=== PATIENT | male | born 1960 | race Hispanic/Latino ===

== ENCOUNTER 2016-12-22 17:00 | Inpatient (IN) | payer MEDICAID, OTHER ==
[2016-12-22 17:01] VITALS: BMI 30.1
--- NOTE | 2016-12-22 20:19 | C.PDOC ---
History Of Present Illness 56 yr old male presents to the ER for alcohol detox. Patient is a pre-screened. Patient reports last drink was today at 12pm. Patient reports he feels tremulous and nauseous. Patient denies chest pain, SOB, abdominal pain, weakness or numbness. 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 Constitutional: Positive for: Other ((+) tremulous) Cardiovascular: Negative for: Chest Pain Gastrointestinal: Positive for: Nausea. Negative for: Abdominal Pain Neurological: Negative for: Weakness, Numbness Physical Exam - Physical Exam Appears: Non-toxic, No Acute Distress Skin: Warm, Dry, No Pale, No Rash Head: Atraumatic, Normacephalic Eye(s): bilateral: Normal Inspection, PERRL, EOMI Oral Mucosa: Moist Neck: Normal, Normal ROM, Supple Chest: Symmetrical, No Tenderness Cardiovascular: Rhythm Regular, No Friction Rub, No Murmur Respiratory: Normal Breath Sounds, No Rales, No Rhonchi, No Stridor, No Wheezing Gastrointestinal/Abdominal: Bowel Sounds, Soft, No Tenderness, No Distention, No Guarding, No Rebound Back: Normal Inspection, No CVA Tenderness, No Vertebral Tenderness, No Paraspinal Tenderness Extremity: Normal ROM, No Swelling Neurological/Psych: Oriented x3, Normal Speech, Normal Motor Gait: Steady ED Course And Treatment - Laboratory Results Result Diagrams: 12/22/16 20:59 12/22/16 20:59 O2 Sat by Pulse Oximetry: 97 (on RA) Pulse Ox Interpretation: Normal Medical Decision Making Medical Decision Making: PLAN: * Alcohol Serum * Drug Screen * CBC * Urinalysis * Librium PO * Zofran PO NOTE: Patient had 1 episode of vomiting in the ED and was treated with Zofran OTD for the vomiting and Librium for alcohol withdrawals. Vomiting has no bleeding and denies GI bleeding. Patient reports that he gets vomiting if he does not drink. The case was discussed with Dr. Nuñez who agrees patient is medically cleared for detox and should get medicine consult for thrombocytopenia. No need for treatment at this time as there is no bleeding and petechiae. On re-exam, the patient reports improvement of symptoms. Lungs remain CTA, heart is RRR, abdomen is soft, non-tender and tolerating PO well. Ambulatory in the ED with steady gait. Disposition - Disposition Disposition: HOSPITALIZED Disposition Time: 21:50 Condition: STABLE - POA Present On Arrival: None - Clinical Impression Clinical Impression: Alcohol dependence - PA / HARVESTING MANAGER / Resident Statement MD/DO has reviewed & agrees with the documentation as recorded. - Scribe Statement The provider has reviewed the documentation as recorded by the Scribe Georgiana Hutchinson All medical record entries made by the Janibpetrona were at my direction and personally dictated by me. I have reviewed the chart and agree that the record accurately reflects my personal performance of the history, physical exam, medical decision making, and the department course for this patient. I have also personally directed, reviewed, and agree with the discharge instructions and disposition.
[2016-12-22 21:06] LABS: BASO % 0.8 % (0.0-2.0); EOS % 0.4 % (0.0-4.0); HEMATOCRIT 39.7 % (35.0-51.0); LYMPH # 0.7 K/uL (1.0-4.3); LYMPH % 25.2 % (20.0-40.0); MEAN CELL VOLUME 104.5 fL (80.0-94.0); MEAN CORPUSCULAR HEMOGLOBIN 35.5 pg (27.0-31.0); MEAN CORPUSCULAR HGB CONC 33.9 g/dL (33.0-37.0); MEAN PLATELET VOLUME 9.2 fL (7.2-11.7); MONO # 0.1 K/uL (0.0-0.8); MONO % 5.1 % (0.0-10.0); NRBC % 0.1 % (0.0-2.0); WHITE BLOOD COUNT 2.6 K/uL (4.8-10.8)
[2016-12-22 21:14] LABS: RBC URINE 3 /hpf (0-3); URINE BACTERIA RARE (<OCC); URINE BILIRUBIN NEGATIVE (NEGATIVE); URINE BLOOD NEGATIVE (NEGATIVE); URINE COLOR Amber (YELLOW); URINE GLUCOSE (UA) NORMAL (Normal); URINE KETONE NEGATIVE (NEGATIVE); URINE LEUKOCYTE ESTERASE NEG Leu/uL (Negative); URINE PROTEIN 2+ mg/dL (NEGATIVE); WBC URINE 1 /hpf (0-5)
[2016-12-22 21:34] LABS: CHLORIDE 102 mmol/L (98-107); SODIUM 141 mmol/L (132-148)
[2016-12-22 21:35] LABS: POTASSIUM 3.9 mmol/L (3.6-5.2)
[2016-12-22 21:37] LABS: ALKALINE PHOSPHATASE 80 U/L (38-126); AST/SGOT 298 U/L (17-59); BILIRUBIN,TOTAL 4.6 mg/dL (0.2-1.3); BLOOD UREA NITROGEN 11 mg/dL (9-20); CARBON DIOXIDE 27 mmol/L (22-30); GFR AFRICAN-AMERICAN > 60; GLUCOSE,RANDOM 122 mg/dL (75-110); TOTAL PROTEIN 6.3 g/dL (6.3-8.3)
[2016-12-22 21:38] LABS: ALCOHOL SERUM < 10 mg/dl (0-10); ALT/SGPT 215 U/L (21-72)
[2016-12-23 08:29] LABS: BASO % 0.6 % (0.0-2.0); EOS # 0.1 K/uL (0.0-0.7); LYMPH # 1.3 K/uL (1.0-4.3); MONO # 0.2 K/uL (0.0-0.8); WHITE BLOOD COUNT 2.8 K/uL (4.8-10.8)
[2016-12-23 08:34] LABS: EOS % 2.5 % (0.0-4.0); HEMATOCRIT 35.1 % (35.0-51.0); LYMPH % 46.8 % (20.0-40.0); MEAN CORPUSCULAR HEMOGLOBIN 35.3 pg (27.0-31.0); MEAN CORPUSCULAR HGB CONC 33.6 g/dL (33.0-37.0); MONO % 6.2 % (0.0-10.0); NRBC % 0.2 % (0.0-2.0); RED CELL DISTRIBUTION WIDTH 15.3 % (11.5-14.5)
[2016-12-23 08:36] LABS: CHLORIDE 103 mmol/L (98-107); POTASSIUM 3.6 mmol/L (3.6-5.2); SODIUM 140 mmol/L (132-148)
[2016-12-23 08:37] LABS: INR 1.5
[2016-12-23 08:38] LABS: AST/SGOT 195 U/L (17-59); BILIRUBIN,TOTAL 5.4 mg/dL (0.2-1.3); CARBON DIOXIDE 26 mmol/L (22-30); GFR AFRICAN-AMERICAN > 60
[2016-12-23 08:39] LABS: ALB/GLOB RATIO 0.8 (1.0-2.1); ALKALINE PHOSPHATASE 56 U/L (38-126); ALT/SGPT 168 U/L (21-72); BLOOD UREA NITROGEN 10 mg/dL (9-20); CALCIUM 7.6 mg/dl (8.6-10.4); GLUCOSE,RANDOM 93 mg/dL (75-110); MAGNESIUM 1.5 mg/dL (1.6-2.3); PHOSPHOROUS 3.1 mg/dL (2.5-4.5); TOTAL PROTEIN 5.2 g/dL (6.3-8.3)
--- NOTE | 2016-12-23 09:40 | PCM.PSYCH ---
Initial Psychiatric Evaluation - Initial Psychiatric Evaluation Type of Admission: Voluntary Legal Status: Capacity Chief Complaint (in patient's own words): "Alcohol" History of Present Illness and Precipitating Events: The pt is seen, chart reviewed, case discussed. He is known from previous admission. 56 year old man, who is single without children, lives alone, presents for alcohol withdrawal. He states he has been heavily drinking since 1980 and has only been sober for "few weeeks" since then. He had one inpatient detox before, with us, but relapsed quickly. He drinks "only beer" (but 24 oz and "a lot") and is surprised why his PLT were low. He likely has cirrhosis. He denies drug use but he smokes. He states he has no feelings of depression, anxiety or suicidal ideation. He denies having hallucinations or hearing voices. After discharge, he plans on returning to his apartment and look for a job. He states he will attend AA meetings. Past Psych: none PMHx: Cirrhosis? Thrombocytopenia Social: single without children. Lives alone in an apartment. 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 Legal: 2 DWIs, no probation or license suspension Current Medications: Active Medications Generic Name Dose Route Start Last Admin Trade Name Freq PRN Reason Stop Dose Admin Folic Acid 1 mg 12/23/16 10:00 Folic Acid PO DAILY ROSA Lorazepam 1 mg 12/22/16 22:21 Ativan PO Q4H PRN Symptoms of alcohol withdrawl Lorazepam 2 mg 12/23/16 09:00 Ativan PO 12/27/16 08:59 Q6H ROSA Taper Multivitamins 1 tab 12/23/16 10:00 Hexavitamin PO DAILY ROSA Ondansetron HCl 4 mg 12/22/16 22:25 Zofran Tab PO Q8 PRN Nausea/Vomiting Thiamine HCl 100 mg 12/23/16 10:00 Vitamin B1 Tab PO DAILY ROSA Trazodone HCl 50 mg 12/22/16 22:21 12/23/16 00:10 Desyrel PO 50 mg HS PRN Administration Insomnia Past Psychiatric History - Past Psychiatric History Previous Treatment History: None Pertinent Medical Hx (Current Medical&Sleep Prob, Allergies): Allergies Allergy/AdvReac Type Severity Reaction Status Date / Time No Known Allergies Allergy Verified 12/22/16 17:30 No Known Home Med 12/22/16 Review of Systems - Neurological Neurological: Tremor - Psychiatric Psychiatric: Abnormal Sleep Pattern, Anxiety, Change in Appetite, Difficulty Concentrating, Irritability. absent: Depression, Hallucinations, Homicidal Ideation, Hopelessness, Paranoia, Suicidal Ideation Mental Status Examination - Personal Presentation Personal Presentation: Looks older than stated age - Affect Affect: Constricted - Motor Activity Motor Activity: Calm - Reliability in Providing Information Reliability in Providing Information: Good - Speech Speech: Organized - Mood Mood: Anxious - Formal Thought Process Formal Thought Process: No Impairment - Cognitive Functions Orientation: Person, Place, Situation, Time Sensorium: Alert Attention/Concentration: Attentive Abstract Thinking: [place] Estimate of Intelligence: Average Judgement: Intact, as evidence by: Insight regarding need for hospitalization Memory: Recent intact, as evidence by: Ability to recall events of the day, Remote intact, as evidenced by: Abilit to recall sig. life events - Risk Risk: Seizure, Withdrawal, Diminished functioning - Strength & Assets Inventory Strength & Assets Inventory: Cooperative - Limitations Limitations: Living alone DSM 5 DX - DSM 5 DSM 5 Diagnosis: Alcohol withdrawal Alcohol use d/o - severe Liver cirrhosis? Thrombocytopenia 0- severe - Recommended/Plan of Treatment Treatment Recommendations and Plan of Treatment: -Ativan detox readjusted -Gabapentin -As needed medications -Support and psychoeducation -Attend groups and activities -AK and CBT for abstinence -Will follow patient on the medical unit as well and transfer back if medically cleared Projected ELOS: 4-5 days Prognosis: fair Discharge Plan and Discharge Criteria: No wdw sxs refer to rehab and AA - Smoking Cessation Smoking Cessation Initiated: Yes
--- NOTE | 2016-12-23 10:55 | CP.PCM.CON ---
<Batsheva Antony - Last Filed: 12/23/16 13:02> History of Present Illness - History of Present Illness History of Present Illness: PGY 1 note for medicine service for Dr. De La Rosa: Medicine team was asked to evaluated the patient due to thrombocytopenia. Patient is a 56 year old male with a PMHx of alcohol use disorder presenting with low platelets. Patient admits to drinking heavily for the past several months, having twelve, 24-oz beers per day. Patient states that he woke up Thursday morning and started vomiting before he could have a beer. He describes the first episode of vomiting as containing a little bit of blood and explains that each consecutive vomiting episode contained more blood and "yellow mucus". Patient believes he vomited around 10 times yesterday, including while he was in the ED. He complains of chills, fatigue, palpitations, shortness of breath, diarrhea, and lower extremity cramping. He denies nausea, headache, dizziness, blurry vision, dysuria, swelling, numbness, and tingling. PMHx: alcohol use disorder, cirrhosis Family Hx: denies Meds: none Allergies: NKDA PSHx: none Hospitalizations: Jun 2016 alcohol detox at [facility] Hx: heavy alcohol use past 8 years (12 pack of 25 ounce beer daily), was only sober for around 1 month after detox in the fall, denies tobacco use, denies ever using recreational drugs. single without children. Lives alone in an apartment. 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 Review of Systems - Constitutional Constitutional: Chills, Weight Loss, Weakness. absent: Fatigue, Headache - EENT Eyes: absent: Blurred Vision, Change in Vision Ears: absent: Dizziness - Cardiovascular Cardiovascular: absent: Chest Pain, Chest Pain at Rest, Edema, Palpitations, Syncope - Respiratory Respiratory: Dyspnea, Dyspnea on Exertion. absent: Cough - Gastrointestinal Gastrointestinal: Abdominal Pain, Hematemesis, Vomiting. absent: Constipation, Diarrhea, Hematochezia, Melena, Nausea - Genitourinary Genitourinary: absent: Change in Urinary Stream, Difficulty Urinating - Neurological Neurological: absent: Abnormal Gait - Psychiatric Psychiatric: absent: Auditory Hallucinations, Suicidal Ideation, Visual Hallucinations, Tactile Hallucinations - Hematologic/Lymphatic Hematologic: absent: Easy Bleeding, Easy Bruising Past Patient History - Infectious Disease Hx of Infectious Diseases: None - Tetanus Immunizations Tetanus Immunization: Unknown - Past Medical History & Family History Past Medical History?: No - Past Social History Smoking Status: Never Smoked - CARDIAC Hx Cardiac Disorders: No Hx Hypertension: No - PULMONARY Hx Tuberculosis: No - NEUROLOGICAL HX Cerebrovascular Accident: No Hx Seizures: No - HEMATOLOGICAL/ONCOLOGICAL Hx Cancer: No Hx Human Immunodeficiency Virus (HIV): No - MUSCULOSKELETAL/RHEUMATOLOGICAL Hx Falls: No - GENITOURINARY/GYNECOLOGICAL Hx Sexually Transmitted Disorders: No - PSYCHIATRIC Hx Substance Use: No - SURGICAL HISTORY Hx Surgeries: No - ANESTHESIA Hx Anesthesia: No Meds Allergies/Adverse Reactions: Allergies Allergy/AdvReac Type Severity Reaction Status Date / Time No Known Allergies Allergy Verified 12/22/16 17:30 - Medications Medications: Current Medications Folic Acid (Folic Acid) 1 mg PO DAILY ROSA Lorazepam (Ativan) 1 mg PO Q4H PRN PRN Reason: Symptoms of alcohol withdrawl Lorazepam (Ativan) 2 mg PO Q6H ROSA PRN Reason: Taper Stop: 12/27/16 08:59 Last Admin: 12/23/16 10:13 Dose: 2 mg Multivitamins (Hexavitamin) 1 tab PO DAILY ROSA Ondansetron HCl (Zofran Tab) 4 mg PO Q8 PRN PRN Reason: Nausea/Vomiting Thiamine HCl (Vitamin B1 Tab) 100 mg PO DAILY ROSA Topiramate (Topamax) 25 mg PO BID ROSA Trazodone HCl (Desyrel) 50 mg PO HS PRN PRN Reason: Insomnia Last Admin: 12/23/16 00:10 Dose: 50 mg Physical Exam - Constitutional Appears: Non-toxic, No Acute Distress - Head Exam Head Exam: ATRAUMATIC, NORMAL INSPECTION - Eye Exam Eye Exam: EOMI, Normal appearance, PERRL Pupil Exam: NORMAL ACCOMODATION - ENT Exam ENT Exam: Mucous Membranes Dry - Respiratory Exam Respiratory Exam: Clear to Auscultation Bilateral, NORMAL BREATHING PATTERN. absent: Accessory Muscle Use, Rales, Rhonchi, Wheezes - Cardiovascular Exam Cardiovascular Exam: REGULAR RHYTHM, +S1, +S2 - GI/Abdominal Exam GI & Abdominal Exam: Distended, Normal Bowel Sounds, Soft. absent: Firm, Guarding, Tenderness - Extremities Exam Extremities exam: Positive for: normal inspection. Negative for: calf tenderness, pedal edema - Back Exam Back exam: NORMAL INSPECTION. absent: CVA tenderness (L), CVA tenderness (R), paraspinal tenderness - Neurological Exam Neurological exam: Alert, CN II-XII Intact, Oriented x3 - Psychiatric Exam Psychiatric exam: Normal Affect, Normal Mood - Skin Skin Exam: Dry, Intact, Normal Color, Warm Additional comments: No petechia or hematomas, no rashes Results - Vital Signs Recent Vital Signs: Last Vital Signs Temp 98 F 12/23/16 06:21 Pulse 84 12/23/16 06:21 Resp 18 12/23/16 06:21 BP 126/66 12/23/16 06:21 Pulse Ox 95 12/23/16 06:21 - Labs Result Diagrams: 12/23/16 08:24 12/23/16 08:24 Labs: Laboratory Results - last 24 hr 12/23/16 12/23/16 08:24 09:23 WBC 2.8 L RBC 3.35 L Hgb 11.8 L Hct 35.1 MCV 105.0 H MCH 35.3 H MCHC 33.6 RDW 15.3 H Plt Count 18 L* D Manual Plt Count 20 L* MPV 9.0 Neut % (Auto) 43.9 L Lymph % (Auto) 46.8 H [place] % (Auto) 6.2 Eos % (Auto) 2.5 Baso % (Auto) 0.6 Neut # 1.2 L Lymph # 1.3 [place] # 0.2 Eos # 0.1 Baso # 0.0 PT 17.2 H INR 1.5 APTT 38 H Sodium 140 Potassium 3.6 Chloride 103 Carbon Dioxide 26 Anion Gap 14 BUN 10 Creatinine 0.6 L Est GFR ( Amer) > 60 Est GFR (Non-Af Amer) > 60 Random Glucose 93 Calcium 7.6 L Phosphorus 3.1 Magnesium 1.5 L Total Bilirubin 5.4 H AST 195 H D ALT 168 H D Alkaline Phosphatase 56 Total Protein 5.2 L Albumin 2.4 L D Globulin 2.8 Albumin/Globulin Ratio 0.8 L Assessment & Plan - Assessment and Plan (Free Text) Assessment: Thrombocytopenia, severe No petechiae or hematomas, no signs of active bleed currently (will r/o GI bleed ) Platelets: 20 via manual count No schistocytes seen on peripheral smear - will be looked a by heme/once later today Heme/Onc consulted - help appreciated, Dr. Chelo Marques Alcohol Abuse disorder Ativan taper Ativan 1 mg PO Q4 prn signs of withdrawal CIWA Seizure precautions, aspiration precautions MV/thiamine/FA To be managed by psych GI bleed unlikely aucte due to 1-2 episodes of hematemesis GI consulted, Dr. Harris, help appreciated Protonix 40mg IVP daily Critical care consulted, Dr. Arthur help appreciated f/u Fecal occult Cirrhosis f/u abdominal US f/u hepatitis panel f/u am labs Albumin low, INR 1.5 Pancytopenia f/u anemia workup Heme/Onc consulted - help appreciated, Dr. Chelo Marques Transaminitis AST/ALT - 195/168 Tbil - 5.4 f/u Abs US f/u Hepatitis, HIV Electrolyte Imbalance Mg 1.5 Replace with 2 gram IVP Mag Prophylactic Measures On Protonix IV No chemical anticoagulation due to thrombocytopenia Regular Diet NS at 100 cc/hour Transfer out of detox unit to telemetry bed <Yvonne De La Rosa V - Last Filed: 12/23/16 15:00> Meds - Medications Medications: Current Medications Folic Acid (Folic Acid) 1 mg PO DAILY [facility] Last Admin: 12/23/16 11:12 Dose: Not Given Sodium Chloride (Sodium Chloride 0.9%) 1,000 mls @ 100 mls/hr IV .Q10H ROSA Lorazepam (Ativan) 1 mg PO Q4H PRN PRN Reason: Symptoms of alcohol withdrawl Lorazepam (Ativan) 2 mg PO Q6H [facility] PRN Reason: Taper Stop: 12/27/16 08:59 Last Admin: 12/23/16 10:13 Dose: 2 mg Magnesium Oxide (Mag-Ox) 400 mg PO BID [facility] Last Admin: 12/23/16 13:28 Dose: 400 mg Multivitamins (Hexavitamin) 1 tab PO DAILY [facility] Last Admin: 12/23/16 11:12 Dose: Not Given Ondansetron HCl (Zofran Tab) 4 mg PO Q8 PRN PRN Reason: Nausea/Vomiting Pantoprazole Sodium (Protonix Inj) 40 mg IVP DAILY [facility] Thiamine HCl (Vitamin B1 Tab) 100 mg PO DAILY [facility] Last Admin: 12/23/16 11:12 Dose: Not Given Topiramate (Topamax) 25 mg PO BID [facility] Last Admin: 12/23/16 11:12 Dose: Not Given Trazodone HCl (Desyrel) 50 mg PO HS PRN PRN Reason: Insomnia Last Admin: 12/23/16 00:10 Dose: 50 mg Results - Vital Signs Recent Vital Signs: Last Vital Signs Temp 98.1 F 12/23/16 13:51 Pulse 84 12/23/16 13:51 Resp 18 12/23/16 13:51 BP 116/75 12/23/16 13:51 Pulse Ox 92 L 12/23/16 13:51 - Labs Result Diagrams: 12/23/16 08:24 12/23/16 08:24 Labs: Laboratory Results - last 24 hr 12/23/16 12/23/16 12/23/16 08:24 09:23 12:12 WBC 2.8 L RBC 3.35 L Hgb 11.8 L Hct 35.1 MCV 105.0 H MCH 35.3 H MCHC 33.6 RDW 15.3 H Plt Count 18 L* D Manual Plt Count 20 L* MPV 9.0 Neut % (Auto) 43.9 L Lymph % (Auto) 46.8 H [place] % (Auto) 6.2 Eos % (Auto) 2.5 Baso % (Auto) 0.6 Neut # 1.2 L Lymph # 1.3 [place] # 0.2 Eos # 0.1 Baso # 0.0 Retic Count 1.5 PT 17.2 H INR 1.5 APTT 38 H Sodium 140 Potassium 3.6 Chloride 103 Carbon Dioxide 26 Anion Gap 14 BUN 10 Creatinine 0.6 L Est GFR ( Amer) > 60 Est GFR (Non-Af Amer) > 60 Random Glucose 93 Calcium 7.6 L Phosphorus 3.1 Magnesium 1.5 L % Saturation 76 H Ferritin 142.0 Total Bilirubin 5.4 H AST 195 H D ALT 168 H D Alkaline Phosphatase 56 Total Protein 5.2 L Albumin 2.4 L D Globulin 2.8 Albumin/Globulin Ratio 0.8 L Vitamin B12 890 Hepatitis A IgM Ab Negative Hep Bs Antigen Negative Hep B Core IgM Ab Negative HIV 1&2 Antibody Screen 12/23/16 12:32 WBC RBC Hgb Hct MCV MCH MCHC RDW Plt Count Manual Plt Count MPV Neut % (Auto) Lymph % (Auto) [place] % (Auto) Eos % (Auto) Baso % (Auto) Neut # Lymph # [place] # Eos # Baso # Retic Count PT INR APTT Sodium Potassium Chloride Carbon Dioxide Anion Gap BUN Creatinine Est GFR ( Amer) Est GFR (Non-Af Amer) Random Glucose Calcium Phosphorus Magnesium % Saturation Ferritin Total Bilirubin AST ALT Alkaline Phosphatase Total Protein Albumin Globulin Albumin/Globulin Ratio Vitamin B12 Hepatitis A IgM Ab Hep Bs Antigen Hep B Core IgM Ab HIV 1&2 Antibody Screen Negative Assessment & Plan (1) Alcohol intoxication Status: Acute Comment: Ativan taper (day 1). Monitor for withdrawal. patient is alcohol dependent and heavy alcohol use. Started on IV fluids; patient is mildly dehydrated on exam (2) Thrombocytopenia Status: Acute Comment: severe thrombocytopenia (18,000). Platelet manual count: 20. Peripheral smear ordered: reviewed in laboratory: appears hypochromic, one megakaryocyte, no observed schistocytes. Patient to be transferred out to telemetry for further monitoring. Heme-oncology (Dr. Chelo Marques) on board-->will come and see the patient. Patient has substantial alcohol history; drinking 12 , 24 ounces. Discussed with ICU, patient is not ICU candidate. (3) Abnormal transaminases Status: Acute Comment: Ordered for hepatitis panel. Ordered for abdominal US. possible secondary to alcohol use. monitor LFTS (4) Hematemesis Status: Acute Comment: Dr. Gilliam (GI) on board-->discussed case with him. recommends PPI or H2 elias. Given hemoglobin, does not appear acute, will monitor per discussion (5) Pancytopenia Status: Acute Comment: Likely due to alcohol use. HIV: negative. Hepatitis panel: negative. heme-oncology (Dr. Chelo Marques) on consult (6) Hypomagnesemia Status: Acute Comment: repleted (7) Prophylactic measure Status: Acute Comment: Hold anticoagulation secondary to severe thrombocytopenia; and questionable hematemesis. Will discuss with GI regarding PPi in light of severe thrombocytopenia Attending/Attestation - Attestation I have personally seen and examined this patient.: Yes I have fully participated in the care of the patient.: Yes I have reviewed all pertinent clinical information: Yes Notes (Text): Patient seen, examined, and case discussed with day-time resident. Heme-onc consult (Dr. Chelo Marques) on board GI consult (Dr. Gilliam) on board ICU consult-->patient is not ICU candidate at this time Patient transferred out from detox for further monitoring given severe thrombocytopenia. Patient is heavy alcohol user, history of cirrhosis, with noted episodes of spontaneous episodes of epistaxis, isolated hematemesis. Reviewed platelet manual count: 20; reviewed peripheral smear in lab: hypochromic cells, one megakaryocyte, no schistocytes noted. Patient is on Ativan taper per psych for alcohol detox. Patient is mildly dehydrated; started on IV fluids. Patient has severe thrombocytopenia; monitor for bleeding given risk for spontaneous bleed.
[2016-12-23] MEDS: Multiple Vitamins Tab PO SCH (11:12)
--- NOTE | 2016-12-23 11:59 | CP.PCM.CON ---
History of Present Illness - History of Present Illness History of Present Illness: 56 yo W male admitted to detox from ED due to alcohol intoxication. Admits to drinking 12 24oz bottles of beer per day. Had episode of emesis mixed with blood and found to have platelet count of 23,000 to 17,000 today. Hgb 13 to 11. No melena or tarry stools. Reports he was told by Dr Martines two years ago he has cirrhosis of the liver. Elevated LFTs also noted. No h/o hepatitis. Awaiting monitored bed on the floor. Review of Systems - Cardiovascular Cardiovascular: absent: Chest Pain, Dyspnea - Respiratory Respiratory: absent: Dyspnea, Hemoptysis, Dyspnea on Exertion - Gastrointestinal Gastrointestinal: As Per HPI Past Patient History - Infectious Disease Hx of Infectious Diseases: None - Tetanus Immunizations Tetanus Immunization: Unknown - Past Medical History & Family History Past Medical History?: No - Past Social History Smoking Status: Never Smoked Chewing Tobacco Use: No Cigar Use: No Alcohol: > 2 Drinks/Day Drugs: Denies - CARDIAC Hx Cardiac Disorders: No Hx Hypertension: No - PULMONARY Hx Tuberculosis: No - NEUROLOGICAL HX Cerebrovascular Accident: No Hx Seizures: No - HEMATOLOGICAL/ONCOLOGICAL Hx Cancer: No Hx Cirrhosis: Yes Hx Hepatitis A: No Hx Hepatitis B: No Hx Hepatitis C: No Hx Human Immunodeficiency Virus (HIV): No - MUSCULOSKELETAL/RHEUMATOLOGICAL Hx Falls: No - GENITOURINARY/GYNECOLOGICAL Hx Sexually Transmitted Disorders: No - PSYCHIATRIC Hx Substance Use: No - SURGICAL HISTORY Hx Surgeries: No - ANESTHESIA Hx Anesthesia: No Meds Allergies/Adverse Reactions: Allergies Allergy/AdvReac Type Severity Reaction Status Date / Time No Known Allergies Allergy Verified 12/22/16 17:30 - Medications Medications: Current Medications Folic Acid (Folic Acid) 1 mg PO DAILY [facility] Last Admin: 12/23/16 11:12 Dose: Not Given Magnesium Sulfate/Dextrose (Magnesium Sulfate 1 Gm/100 Ml D5w) 100 mls @ 300 mls/hr IVPB Q30M [facility] Stop: 12/23/16 12:04 Sodium Chloride (Sodium Chloride 0.9%) 1,000 mls @ 100 mls/hr IV .Q10H [facility] Lorazepam (Ativan) 1 mg PO Q4H PRN PRN Reason: Symptoms of alcohol withdrawl Lorazepam (Ativan) 2 mg PO Q6H [facility] PRN Reason: Taper Stop: 12/27/16 08:59 Last Admin: 12/23/16 10:13 Dose: 2 mg Multivitamins (Hexavitamin) 1 tab PO DAILY [facility] Last Admin: 12/23/16 11:12 Dose: Not Given Ondansetron HCl (Zofran Tab) 4 mg PO Q8 PRN PRN Reason: Nausea/Vomiting Pantoprazole Sodium (Protonix Inj) 40 mg IVP Q12H [facility] Thiamine HCl (Vitamin B1 Tab) 100 mg PO DAILY [facility] Last Admin: 12/23/16 11:12 Dose: Not Given Topiramate (Topamax) 25 mg PO BID [facility] Last Admin: 12/23/16 11:12 Dose: Not Given Trazodone HCl (Desyrel) 50 mg PO HS PRN PRN Reason: Insomnia Last Admin: 12/23/16 00:10 Dose: 50 mg Physical Exam - Constitutional Appears: No Acute Distress Additional comments: mildly slurring speech - Head Exam Head Exam: ATRAUMATIC, NORMOCEPHALIC - Eye Exam Eye Exam: Scleral icterus - ENT Exam ENT Exam: Mucous Membranes Dry - Respiratory Exam Respiratory Exam: NORMAL BREATHING PATTERN - Cardiovascular Exam Cardiovascular Exam: REGULAR RHYTHM, +S1 - GI/Abdominal Exam GI & Abdominal Exam: Normal Bowel Sounds, Organomegaly, Soft. absent: Distended , Guarding, Mass, Tenderness Additional comments: skin tag/lipoma above right hip - Rectal Exam Rectal Exam: Deferred - Extremities Exam Extremities exam: Positive for: normal inspection - Neurological Exam Neurological exam: Alert, Oriented x3 Additional comments: somewhat slurred speech Results - Vital Signs Recent Vital Signs: Last Vital Signs Temp 98.1 F 12/23/16 09:00 Pulse 83 12/23/16 09:00 Resp 18 12/23/16 09:00 BP 101/64 12/23/16 09:00 Pulse Ox 98 12/23/16 09:00 - Labs Result Diagrams: 12/23/16 08:24 12/23/16 08:24 Labs: Laboratory Results - last 24 hr 12/23/16 12/23/16 08:24 09:23 WBC 2.8 L RBC 3.35 L Hgb 11.8 L Hct 35.1 MCV 105.0 H MCH 35.3 H MCHC 33.6 RDW 15.3 H Plt Count 18 L* D Manual Plt Count 20 L* MPV 9.0 Neut % (Auto) 43.9 L Lymph % (Auto) 46.8 H [place] % (Auto) 6.2 Eos % (Auto) 2.5 Baso % (Auto) 0.6 Neut # 1.2 L Lymph # 1.3 Gray # 0.2 Eos # 0.1 Baso # 0.0 PT 17.2 H INR 1.5 APTT 38 H Sodium 140 Potassium 3.6 Chloride 103 Carbon Dioxide 26 Anion Gap 14 BUN 10 Creatinine 0.6 L Est GFR ( Amer) > 60 Est GFR (Non-Af Amer) > 60 Random Glucose 93 Calcium 7.6 L Phosphorus 3.1 Magnesium 1.5 L Total Bilirubin 5.4 H AST 195 H D ALT 168 H D Alkaline Phosphatase 56 Total Protein 5.2 L Albumin 2.4 L D Globulin 2.8 Albumin/Globulin Ratio 0.8 L Assessment & Plan (1) Hematemesis Assessment and Plan: Patient with multiple episodes of blood tinged emesis. May be related to alcoholic gastritis, reflux, PUD, MWT. Doubt variceal bleed without acute drop in H/H following multiple episodes Advise IV PRotonix in spite of platelets Consider EGD when more stable and platelets have been improved NPO Discussed with Dr De La Rosa on the floor Status: Acute (2) Alcoholic hepatitis Assessment and Plan: r/o other sources of liver disease (viral, hcc, etc.) Monitor LFTs Status: Acute (3) Abnormal transaminases Assessment and Plan: as above Status: Acute (4) Thrombocytopenia Assessment and Plan: Likely related to chronic liver disease and hypersplenism Hematology consult pending Sonogram of abdomen Consider platelet transfusion for further active bleeding Status: Acute
[2016-12-23] MEDS: Magnesium Oxide 400 mg Tab UD PO SCH ×2 (13:28→17:53)
[2016-12-23] MEDS: Sodium Chloride 0.9% 1,000 ML IV SCH ×2 (14:43→21:28)
--- NOTE | 2016-12-23 19:07 | US ---
HISTORY: elevated lfts and t balwinder delete that the ascites the left at its COMPARISON: None. TECHNIQUE: Sonographic evaluation of the abdomen. FINDINGS: LIVER: Measures 14.0 cm. Diffusely increased echogenicity of the liver parenchyma. Consistent with fatty infiltration. Nodular contour suggestive of hepatic cirrhosis. No mass. No biliary dilatation. Hepatopetal portal venous flow demonstrated. GALLBLADDER: Cholelithiasis. Partially contracted. Thickened wall up to 7 mm. Negative sonographic Villalta's sign. Findings equivocal for cholecystitis. COMMON BILE DUCT: Measures 5 mm. No stones. No dilatation. PANCREAS: Unremarkable as visualized. No mass. No ductal dilatation. RIGHT KIDNEY: Measures 13.4cm. Normal echogenicity. No calculus, mass, or hydronephrosis. LEFT KIDNEY: Measures 13.5cm. Normal echogenicity. No calculus, mass, or hydronephrosis. SPLEEN: Splenomegaly. Spleen measures 14.3 cm in greatest dimension. AORTA: No aneurysmal dilatation. IVC: Unremarkable. OTHER FINDINGS: None. IMPRESSION: Probable hepatic cirrhosis. Ascites. Splenomegaly. Partially contracted gallbladder with cholelithiasis and thickened wall. Negative sonographic Villalta's sign. Findings equivocal for cholecystitis.
[2016-12-23 19:46] LABS: HEMATOCRIT 35.7 % (35.0-51.0); MEAN CELL VOLUME 105.1 fL (80.0-94.0); MEAN CORPUSCULAR HEMOGLOBIN 35.8 pg (27.0-31.0); MEAN CORPUSCULAR HGB CONC 34.1 g/dL (33.0-37.0); MEAN PLATELET VOLUME 9.5 fL (7.2-11.7); RED CELL DISTRIBUTION WIDTH 15.5 % (11.5-14.5); WHITE BLOOD COUNT 2.4 K/uL (4.8-10.8)
--- NOTE | 2016-12-23 20:26 | CP.PCM.CON ---
History of Present Illness - History of Present Illness History of Present Illness: 56 year old male with a history of alcohol abuse, admitted from the detox unit with severe thrombocytopenia. The patient is unsure if he has had blood problems in the past but was told by his PMD he had liver problems. He has been having intermittent hematemesis and easy bruising. Past medical history: Alcoholism Past surgical history: None Family history: Denies hematologic and oncologic problems Social history: Drinks 12 24oz beers daily, denies tobacco and illicit drug use. Review of systems: All remaining review of systems including HEENT, cardiovascular, respiratory, gastrointestinal, genitourinary, musculoskeletal, dermatologic, neurologic, and psychiatric are negative unless mentioned in the HPI. Past Patient History - Infectious Disease Hx of Infectious Diseases: None - Tetanus Immunizations Tetanus Immunization: Unknown - Past Medical History & Family History Past Medical History?: No - Past Social History Smoking Status: Never Smoked - CARDIAC Hx Cardiac Disorders: No Hx Hypertension: No - PULMONARY Hx Tuberculosis: No - NEUROLOGICAL HX Cerebrovascular Accident: No Hx Seizures: No - HEMATOLOGICAL/ONCOLOGICAL Hx Cancer: No Hx Human Immunodeficiency Virus (HIV): No - MUSCULOSKELETAL/RHEUMATOLOGICAL Hx Falls: No - GENITOURINARY/GYNECOLOGICAL Hx Sexually Transmitted Disorders: No - PSYCHIATRIC Hx Substance Use: No - SURGICAL HISTORY Hx Surgeries: No - ANESTHESIA Hx Anesthesia: No Meds Allergies/Adverse Reactions: Allergies Allergy/AdvReac Type Severity Reaction Status Date / Time No Known Allergies Allergy Verified 12/22/16 17:30 - Medications Medications: Current Medications Folic Acid (Folic Acid) 1 mg PO DAILY [facility] Last Admin: 12/23/16 11:12 Dose: Not Given Sodium Chloride (Sodium Chloride 0.9%) 1,000 mls @ 100 mls/hr IV .Q10H [facility] Last Admin: 12/23/16 14:43 Dose: 100 mls/hr Lorazepam (Ativan) 1 mg PO Q4H PRN PRN Reason: Symptoms of alcohol withdrawl Lorazepam (Ativan) 2 mg PO Q6H [facility] PRN Reason: Taper Stop: 12/27/16 08:59 Last Admin: 12/23/16 17:55 Dose: 2 mg Magnesium Oxide (Mag-Ox) 400 mg PO BID [facility] Last Admin: 12/23/16 17:53 Dose: 400 mg Multivitamins (Hexavitamin) 1 tab PO DAILY [facility] Last Admin: 12/23/16 11:12 Dose: Not Given Ondansetron HCl (Zofran Tab) 4 mg PO Q8 PRN PRN Reason: Nausea/Vomiting Pantoprazole Sodium (Protonix Inj) 40 mg IVP DAILY [facility] Last Admin: 12/23/16 17:53 Dose: 40 mg Thiamine HCl (Vitamin B1 Tab) 100 mg PO DAILY [facility] Last Admin: 12/23/16 11:12 Dose: Not Given Topiramate (Topamax) 25 mg PO BID [facility] Last Admin: 12/23/16 17:53 Dose: 25 mg Trazodone HCl (Desyrel) 50 mg PO HS PRN PRN Reason: Insomnia Last Admin: 12/23/16 00:10 Dose: 50 mg Physical Exam - Head Exam Head Exam: ATRAUMATIC - Eye Exam Eye Exam: Normal appearance - ENT Exam ENT Exam: Mucous Membranes Dry - Respiratory Exam Respiratory Exam: NORMAL BREATHING PATTERN - Cardiovascular Exam Cardiovascular Exam: +S1, +S2 - GI/Abdominal Exam GI & Abdominal Exam: Normal Bowel Sounds - Extremities Exam Extremities exam: Positive for: pedal edema - Neurological Exam Neurological exam: Oriented x3 - Psychiatric Exam Psychiatric exam: Flat Affect - Skin Skin Exam: Warm Results - Vital Signs Recent Vital Signs: Last Vital Signs Temp 97.9 F 12/23/16 15:48 Pulse 89 12/23/16 15:48 Resp 20 12/23/16 15:48 BP 128/74 12/23/16 15:48 Pulse Ox 96 12/23/16 15:48 - Labs Result Diagrams: 12/23/16 19:40 12/23/16 08:24 Labs: Laboratory Results - last 24 hr 12/23/16 12/23/16 12/23/16 08:24 09:23 12:12 WBC 2.8 L RBC 3.35 L Hgb 11.8 L Hct 35.1 MCV 105.0 H MCH 35.3 H MCHC 33.6 RDW 15.3 H Plt Count 18 L* D Manual Plt Count 20 L* MPV 9.0 Neut % (Auto) 43.9 L Lymph % (Auto) 46.8 H [place] % (Auto) 6.2 Eos % (Auto) 2.5 Baso % (Auto) 0.6 Neut # 1.2 L Lymph # 1.3 [place] # 0.2 Eos # 0.1 Baso # 0.0 Retic Count 1.5 PT 17.2 H INR 1.5 APTT 38 H Sodium 140 Potassium 3.6 Chloride 103 Carbon Dioxide 26 Anion Gap 14 BUN 10 Creatinine 0.6 L Est GFR ( Amer) > 60 Est GFR (Non-Af Amer) > 60 Random Glucose 93 Calcium 7.6 L Phosphorus 3.1 Magnesium 1.5 L Iron 206 H TIBC 265 % Saturation 76 H Ferritin 142.0 Total Bilirubin 5.4 H AST 195 H D ALT 168 H D Alkaline Phosphatase 56 Total Protein 5.2 L Albumin 2.4 L D Globulin 2.8 Albumin/Globulin Ratio 0.8 L Alpha Fetoprotein Vitamin B12 890 Hepatitis A IgM Ab Negative Hep Bs Antigen Negative Hep Bs Antibody Hep B Core IgM Ab Negative Hepatitis C Antibody Reactive H HIV 1&2 Antibody Screen 12/23/16 12/23/16 12/23/16 12:32 12:41 19:40 WBC 2.4 L RBC 3.39 L Hgb 12.2 Hct 35.7 MCV 105.1 H MCH 35.8 H MCHC 34.1 RDW 15.5 H Plt Count 15 L* Manual Plt Count MPV 9.5 Neut % (Auto) Lymph % (Auto) [place] % (Auto) Eos % (Auto) Baso % (Auto) Neut # Lymph # [place] # Eos # Baso # Retic Count PT INR APTT Sodium Potassium Chloride Carbon Dioxide Anion Gap BUN Creatinine Est GFR ( Amer) Est GFR (Non-Af Amer) Random Glucose Calcium Phosphorus Magnesium Iron TIBC % Saturation Ferritin Total Bilirubin AST ALT Alkaline Phosphatase Total Protein Albumin Globulin Albumin/Globulin Ratio Alpha Fetoprotein 29.0 H Vitamin B12 Hepatitis A IgM Ab Hep Bs Antigen Hep Bs Antibody Indeterminate Hep B Core IgM Ab Hepatitis C Antibody HIV 1&2 Antibody Screen Negative Assessment & Plan (1) Pancytopenia Assessment and Plan: ultrasound of the abdomen suggestive of liver cirrhosis, has splenomegaly transfuse platelets for significant bleeding will evaluate iron/b12/folate stores alcohol cessation Status: Acute (2) Coagulopathy Assessment and Plan: liver cirrhosis Status: Acute (3) Splenomegaly Assessment and Plan: liver disease, portal hypertension related Thank you for this interesting consult. Status: Acute
[2016-12-24] MEDS ORDERED: Lactated Ringer's 500 ML IV ONE (08:00)
[2016-12-24] MEDS ORDERED: Propofol 10 mg/ml Inj (20 ML) ONE (08:08)
[2016-12-24] MEDS ORDERED: Phenylephrine 10 mg/ml Inj ONE (08:14)
--- NOTE | 2016-12-24 08:27 | CP.PCM.PN ---
Subjective - Date & Time of Evaluation Date of Evaluation: 12/24/16 Time of Evaluation: 08:24 - Subjective Subjective: POST EGD No varices or portal hypertension Ulcerative esophagitis at GE junction Gastritis small hiatal hernia Rec/ Needs PPI for healing of ulceration/esophagitis Monitor platelets likely due to liver disease and not from meds Monitor for active bleeding Can repeat EGD in a couple of months to assess and biopsy as platelets permit Will follow. Objective - Vital Signs/Intake and Output Vital Signs (last 24 hours): Temp Pulse Resp BP Pulse Ox 97.8 F 80 20 122/79 95 12/24/16 00:00 12/24/16 00:00 12/24/16 00:00 12/24/16 00:00 12/24/16 00:00 - Medications Medications: Current Medications Folic Acid (Folic Acid) 1 mg PO DAILY [facility] Last Admin: 12/23/16 11:12 Dose: Not Given Sodium Chloride (Sodium Chloride 0.9%) 1,000 mls @ 100 mls/hr IV .Q10H [facility] Last Admin: 12/23/16 21:28 Dose: 100 mls/hr Lorazepam (Ativan) 1 mg PO Q4H PRN PRN Reason: Symptoms of alcohol withdrawl Lorazepam (Ativan) 2 mg PO Q6H [facility] PRN Reason: Taper Stop: 12/27/16 08:59 Last Admin: 12/24/16 03:07 Dose: Not Given Multivitamins (Hexavitamin) 1 tab PO DAILY [facility] Last Admin: 12/23/16 11:12 Dose: Not Given Ondansetron HCl (Zofran Tab) 4 mg PO Q8 PRN PRN Reason: Nausea/Vomiting Pantoprazole Sodium (Protonix Ec Tab) 40 mg PO DAILY [facility] Thiamine HCl (Vitamin B1 Tab) 100 mg PO DAILY [facility] Last Admin: 12/23/16 11:12 Dose: Not Given Topiramate (Topamax) 25 mg PO BID [facility] Last Admin: 12/23/16 17:53 Dose: 25 mg Trazodone HCl (Desyrel) 50 mg PO HS PRN PRN Reason: Insomnia Last Admin: 12/23/16 00:10 Dose: 50 mg - Labs Labs: 12/23/16 19:40 12/23/16 08:24 PT 17.2 SECONDS (9.7-12.2) H 12/23/16 08:24 INR 1.5 12/23/16 08:24 APTT 38 SECONDS (21-34) H 12/23/16 08:24 Assessment and Plan (1) Hematemesis Status: Acute (2) Alcoholic hepatitis Status: Acute (3) Abnormal transaminases Status: Acute (4) Thrombocytopenia Status: Acute
[2016-12-24] MEDS ORDERED: Lactated Ringer's 1,000 ML IV SCH (09:15)
[2016-12-24] MEDS ORDERED: Pantoprazole 40 mg EC Tab PO SCH (10:00)
[2016-12-24] MEDS: Multiple Vitamins Tab PO SCH (10:17)
[2016-12-24] MEDS: Sodium Chloride 0.9% 1,000 ML IV SCH ×2 (10:18→17:28)
--- NOTE | 2016-12-24 10:48 | CARD ---
APPROVED REPORT EKG Measurement Heart [id number] <Conclusion> Normal sinus rhythm Prolonged QT Abnormal ECG
[2016-12-24 11:51] LABS: BASO % 0.5 % (0.0-2.0); EOS % 1.6 % (0.0-4.0); HEMATOCRIT 35.5 % (35.0-51.0); LYMPH # 0.8 K/uL (1.0-4.3); LYMPH % 33.6 % (20.0-40.0); MEAN CELL VOLUME 105.9 fL (80.0-94.0); MEAN CORPUSCULAR HEMOGLOBIN 35.4 pg (27.0-31.0); MEAN CORPUSCULAR HGB CONC 33.4 g/dL (33.0-37.0); MONO # 0.2 K/uL (0.0-0.8); RED CELL DISTRIBUTION WIDTH 15.6 % (11.5-14.5); WHITE BLOOD COUNT 2.4 K/uL (4.8-10.8)
[2016-12-24 11:58] LABS: INR 1.5
[2016-12-24 12:02] LABS: CHLORIDE 104 mmol/L (98-107); POTASSIUM 3.6 mmol/L (3.6-5.2); SODIUM 137 mmol/L (132-148)
[2016-12-24 12:04] LABS: BILIRUBIN,TOTAL 3.4 mg/dL (0.2-1.3); CARBON DIOXIDE 24 mmol/L (22-30); GFR AFRICAN-AMERICAN > 60
[2016-12-24 12:05] LABS: ALB/GLOB RATIO 0.8 (1.0-2.1); ALKALINE PHOSPHATASE 51 U/L (38-126); ALT/SGPT 140 U/L (21-72); AST/SGOT 140 U/L (17-59); BLOOD UREA NITROGEN 11 mg/dL (9-20); CALCIUM 7.4 mg/dl (8.6-10.4); GLUCOSE,RANDOM 175 mg/dL (75-110); MAGNESIUM 1.6 mg/dL (1.6-2.3); PHOSPHOROUS 2.5 mg/dL (2.5-4.5); TOTAL PROTEIN 4.8 g/dL (6.3-8.3)
--- NOTE | 2016-12-24 12:17 | PCM.PYCHPN ---
Psychiatric Progress Note - Psychiatric Progress Note Patient seen today, length of contact: 16 min Patient Chief Complaint: "Tired" Problems Identified/Issues Discussed: he is seen as a consult due to transfer from detox to medical floor with severe thrombocytemia Doing "better" Wdw seems to be under control No breakthru sxs Support and psychoed given Mood is "OK" Medication Change: Yes (detox changes daily) Medical Record Reviewed: Yes Mental Status Examination - Cognitive Function Orientation: Person, Place, Situation, Time Memory: Impaired Attention: Poor Concentration: Poor Association: WNL Fund of Knowledge: WNL - Mood Mood: Anxious - Affect Affect: Blunted - Speech Speech: Appropriate - Formal Thought Process Formal Thought Process: No Impairment - Suicidal Ideation Suicidal Ideation: No - Homicidal Ideation Homicidal Ideation: No Goal/Treatment Plan - Goal/Treatment Plan Need for Continued Stay: Severe functional impairment Progress Toward Problem(s) and Goals/Treatment Plan: -Ativan detox continues, Day #2 -Gabapentin -As needed medications -Support and psychoeducation -[place] and CBT for abstinence
--- NOTE | 2016-12-24 13:34 | CP.PCM.PN ---
<Batsheva Antony - Last Filed: 12/24/16 15:57> Subjective - Date & Time of Evaluation Date of Evaluation: 12/24/16 Time of Evaluation: 07:20 - Subjective Subjective: PGY [address] De La Rosa: Patient seen and examined at bedside this morning. He states that he slept well last night after receiving trazodone. He says that his appetite is coming back and would like to eat and drink after his EGD. He has been urinating, however he has not had a bowel movement since his admission, attributing it to the vomiting and lack of appetite yesterday. He still feels fatigued but does not complain of any alcohol withdrawal symptoms, including headache, nausea, vomiting, and tremors. Patient also denies dizziness, blurry vision, cough, SOB , palpitations diarrhea, dysuria, bleeding, dwelling, numbness, and tingling. Objective - Vital Signs/Intake and Output Vital Signs (last 24 hours): Temp Pulse Resp BP Pulse Ox 98 F 90 20 121/75 96 12/24/16 09:27 12/24/16 10:00 12/24/16 09:27 12/24/16 09:27 12/24/16 09:27 - Medications Medications: Current Medications Folic Acid (Folic Acid) 1 mg PO DAILY [facility] Last Admin: 12/24/16 10:17 Dose: 1 mg Sodium Chloride (Sodium Chloride 0.9%) 1,000 mls @ 100 mls/hr IV .Q10H [facility] Last Admin: 12/24/16 10:18 Dose: Not Given Lactated Ringer's (Lactated Ringer's) 1,000 mls @ 75 mls/hr IV .[id number] [facility] Lorazepam (Ativan) 1 mg PO Q4H PRN PRN Reason: Symptoms of alcohol withdrawl Lorazepam (Ativan) 2 mg PO Q8H [facility] PRN Reason: Taper Stop: 12/27/16 08:59 Last Admin: 12/24/16 10:17 Dose: 2 mg Multivitamins (Hexavitamin) 1 tab PO DAILY [facility] Last Admin: 12/24/16 10:17 Dose: 1 tab Ondansetron HCl (Zofran Tab) 4 mg PO Q8 PRN PRN Reason: Nausea/Vomiting Pantoprazole Sodium (Protonix Ec Tab) 40 mg PO DAILY [facility] Last Admin: 12/24/16 10:18 Dose: 40 mg Thiamine HCl (Vitamin B1 Tab) 100 mg PO DAILY [facility] Last Admin: 12/24/16 10:17 Dose: 100 mg Topiramate (Topamax) 25 mg PO BID [facility] Last Admin: 12/24/16 10:17 Dose: 25 mg Trazodone HCl (Desyrel) 50 mg PO HS PRN PRN Reason: Insomnia Last Admin: 12/23/16 00:10 Dose: 50 mg - Labs Labs: 12/24/16 11:39 12/24/16 11:39 PT 17.9 SECONDS (9.7-12.2) H 12/24/16 11:39 INR 1.5 12/24/16 11:39 APTT 37 SECONDS (21-34) H 12/24/16 11:39 - Constitutional Appears: Non-toxic, No Acute Distress, Chronically Ill - Head Exam Head Exam: ATRAUMATIC, NORMAL INSPECTION - Eye Exam Eye Exam: EOMI, Normal appearance, PERRL Pupil Exam: NORMAL ACCOMODATION - ENT Exam ENT Exam: Mucous Membranes Moist - Respiratory Exam Respiratory Exam: Clear to Ausculation Bilateral, NORMAL BREATHING PATTERN. absent: Respiratory Distress - Cardiovascular Exam Cardiovascular Exam: REGULAR RHYTHM, +S1, +S2 - GI/Abdominal Exam GI & Abdominal Exam: Distended, Soft, Normal Bowel Sounds. absent: Firm, Guarding, Tenderness - Extremities Exam Extremities Exam: Full ROM, Normal Inspection. absent: Calf Tenderness, Pedal Edema - Back Exam Back Exam: NORMAL INSPECTION. absent: CVA tenderness (L), CVA tenderness (R), paraspinal tenderness - Neurological Exam Neurological Exam: Alert, Awake, CN II-XII Intact, Oriented x3 - Psychiatric Exam Psychiatric exam: Flat Affect, Normal Affect, Normal Mood - Skin Skin Exam: Dry, Intact, Normal Color, Warm Assessment and Plan - Assessment and Plan (Free Text) Assessment: Thrombocytopenia, severe No petechiae or hematomas, no signs of active bleed currently Platelets: 20 via manual count No schistocytes seen on peripheral smear - will be looked a by heme/once later today Heme/Onc consulted - help appreciated, Dr. Chelo Marques Alcohol Abuse disorder Ativan taper Ativan 1 mg PO Q4 prn signs of withdrawal CIWA Seizure precautions, aspiration precautions MV/thiamine/FA To be managed by psych GI bleed unlikely aucte due to 1-2 episodes of hematemesis GI consulted, Dr. Harris, help appreciated Protonix 40mg IVP daily Critical care consulted, Dr. Arthur help appreciated f/u Fecal occult Cirrhosis f/u abdominal US f/u hepatitis panel f/u am labs Albumin low, INR 1.5 Pancytopenia f/u anemia workup Heme/Onc consulted - help appreciated, Dr. Chelo Marques Transaminitis AST/ALT - 195/168 Tbil - 5.4 f/u Abs US f/u Hepatitis, HIV Electrolyte Imbalance Mg 1.5 Replace with 2 gram IVP Mag Prophylactic Measures On Protonix IV No chemical anticoagulation due to thrombocytopenia Regular Diet NS at 100 cc/hour Telemetry monitoring <Yvonne De La Rosa V - Last Filed: 12/24/16 17:50> Objective - Vital Signs/Intake and Output Vital Signs (last 24 hours): Temp Pulse Resp BP Pulse Ox 98 F 90 20 121/75 96 12/24/16 09:27 12/24/16 10:00 12/24/16 09:27 12/24/16 09:27 12/24/16 09:27 - Medications Medications: Current Medications Famotidine (Pepcid) 20 mg PO DAILY [facility] Folic Acid (Folic Acid) 1 mg PO DAILY [facility] Last Admin: 12/24/16 10:17 Dose: 1 mg Sodium Chloride (Sodium Chloride 0.9%) 1,000 mls @ 100 mls/hr IV .Q10H [facility] Last Admin: 12/24/16 17:28 Dose: 100 mls/hr Lactated Ringer's (Lactated Ringer's) 1,000 mls @ 75 mls/hr IV .[id number] [facility] Lorazepam (Ativan) 1 mg PO Q4H PRN PRN Reason: Symptoms of alcohol withdrawl Lorazepam (Ativan) 2 mg PO Q8H [facility] PRN Reason: Taper Stop: 12/27/16 08:59 Last Admin: 12/24/16 17:25 Dose: 2 mg Multivitamins (Hexavitamin) 1 tab PO DAILY [facility] Last Admin: 12/24/16 10:17 Dose: 1 tab Ondansetron HCl (Zofran Tab) 4 mg PO Q8 PRN PRN Reason: Nausea/Vomiting Thiamine HCl (Vitamin B1 Tab) 100 mg PO DAILY [facility] Last Admin: 03/29/17 10:17 Dose: 100 mg Topiramate (Topamax) 25 mg PO BID [facility] Last Admin: 12/24/16 17:25 Dose: 25 mg Trazodone HCl (Desyrel) 50 mg PO HS PRN PRN Reason: Insomnia Last Admin: 12/23/16 00:10 Dose: 50 mg - Labs Labs: 12/24/16 11:39 12/24/16 11:39 PT 17.9 SECONDS (9.7-12.2) H 12/24/16 11:39 INR 1.5 12/24/16 11:39 APTT 37 SECONDS (21-34) H 12/24/16 11:39 Assessment and Plan (1) Alcohol intoxication Status: Acute (2) Thrombocytopenia Status: Acute (3) Abnormal transaminases Status: Acute (4) Hematemesis Status: Acute (5) Pancytopenia Status: Acute (6) Hypomagnesemia Status: Acute (7) Prophylactic measure Status: Acute Attending/Attestation - Attestation I have personally seen and examined this patient.: Yes I have fully participated in the care of the patient.: Yes I have reviewed all pertinent clinical information, including history, physical exam and plan: Yes Notes (Text): patient seen, examined and case discussed with day-time resident. Patient seen s/p endoscopy by GI this morning. Findings: reflux esophagitits. No specimens collected. Small hiatus hernia. Gastritis. No specimens collected. Normal examined duodenum; per GI recommended for Protonix and repeat upper endoscopy in 2 months to check healing. Patient is currently on Day 2 of ativan taper for alcohol withdrawal. Patient's platelets are low: 16,000 related to his alcohol use, cirrhosis, and splenomegaly. Monitor given thrombocytopenia and increased risk for spontaneous bleed. Abdominal US (12/23/16): probable hepatic cirrhosis. Ascites. Splenomegaly. Partially contracted gallbladder with cholelithiasis and thickened wall. negative sonographic Villalta's sign. Equivocal for cholecystitis. Assessment & Plan (1) Alcohol intoxication Status: Acute Comment: Ativan taper (day 2). Monitor for withdrawal. patient is alcohol dependent and heavy alcohol use. Started on IV fluids Transferred out to telemetry from detox for further monitoring in light of severe thrombocytopenia Psych on board (2) Thrombocytopenia Status: Acute Comment: 12/23: severe thrombocytopenia (18,000). Platelet manual count: 20 12/24: platelets: 16,000; no observed new rashes, no reported bleeding episodes; monitor for bleeding; May need transfuse if falls below 10k or bleeding Peripheral smear ordered: reviewed in laboratory: appears hypochromic, one megakaryocyte, no observed schistocytes on 12/23/16. Patient to be transferred out to telemetry for further monitoring on 12/23. Heme-oncology (Dr. Chelo Marques) on board--->help appreciated Patient has substantial alcohol history; drinking 12, 24 ounces. Alcohol cirrhosis Discussed with ICU, patient is not ICU candidate on 12/23/16 UDS: negative (3) Abnormal transaminases Status: Acute Comment: Patient is hepatitis C positive. Liver function tests are downtrending Abdominal US (12/23/16): probable hepatic cirrhosis. Ascites. Splenomeglay. Partially contracted gallbladder with cholelithiasis and thicekned wall. negative sonographic Villalta's sign. Equivocal for cholecystitis. (4) Hematemesis Status: suspected Comment: Dr. Gilliam (GI) on board-->help appreciated s/p endoscopy (12/23). Findings: reflux esophagitits. No specimens collected. Small hiatus hernia. Gastritis. No specimens collected. Normal examined duodenum ; per GI recommended for Protonix and repeat upper endoscopy in 2 months to check healing. hemoglobin stable No reported further episodes of hematemesis (5) Pancytopenia Status: Acute Comment: Likely due to alcohol use. HIV: negative. Hepatitis panel: positive Hep C+. Heme-oncology (Dr. Chelo Marques) on consult (6) Hypomagnesemia Status: resolved Comment: repleted Mg2+: 1.6 normal limit (7) Prophylactic measure Status: Acute Comment: Hold anticoagulation secondary to severe thrombocytopenia GI ppx: Pepcid 20mg PO daily On telemetry for further monitoring
--- NOTE | 2016-12-24 14:54 | CP.PCM.DIS ---
Provider - Provider Date of Admission: 12/22/16 22:29 Attending physician: Yvonen De La Rosa, [facility] Course - Lab Results Lab Results: Most Recent Lab Values WBC 2.4 K/uL (4.8-10.8) L 12/24/16 11:39 RBC 3.35 Mil/uL (4.40-5.90) L 12/24/16 11:39 Hgb 11.9 g/dL (12.0-18.0) L 12/24/16 11:39 Hct 35.5 % (35.0-51.0) 12/24/16 11:39 MCV 105.9 fL (80.0-94.0) H 12/24/16 11:39 MCH 35.4 pg (27.0-31.0) H 12/24/16 11:39 MCHC 33.4 g/dL (33.0-37.0) 12/24/16 11:39 RDW 15.6 % (11.5-14.5) H 12/24/16 11:39 Plt Count 16 K/uL (130-400) L* 12/24/16 11:39 Manual Plt Count 20 K/uL (130-400) L* 12/23/16 09:23 MPV 9.0 fL (7.2-11.7) 12/24/16 11:39 Neut % (Auto) 57.3 % (50.0-75.0) 12/24/16 11:39 Lymph % (Auto) 33.6 % (20.0-40.0) 12/24/16 11:39 [place] % (Auto) 7.0 % (0.0-10.0) 12/24/16 11:39 Eos % (Auto) 1.6 % (0.0-4.0) 12/24/16 11:39 Baso % (Auto) 0.5 % (0.0-2.0) 12/24/16 11:39 Neut # 1.4 K/uL (1.8-7.0) L 12/24/16 11:39 Lymph # 0.8 K/uL (1.0-4.3) L 12/24/16 11:39 [place] # 0.2 K/uL (0.0-0.8) 12/24/16 11:39 Eos # 0.0 K/uL (0.0-0.7) 12/24/16 11:39 Baso # 0.0 K/uL (0.0-0.2) 12/24/16 11:39 Differential Comment 12/24/16 11:39 Retic Count 1.5 % (0.5-1.5) 12/23/16 12:12 Haptoglobin <15 mg/dL (43-212) L 12/23/16 12:12 PT 17.9 SECONDS (9.7-12.2) H 12/24/16 11:39 INR 1.5 12/24/16 11:39 APTT 37 SECONDS (21-34) H 12/24/16 11:39 Sodium 137 mmol/L (132-148) 12/24/16 11:39 Potassium 3.6 mmol/L (3.6-5.2) 12/24/16 11:39 Chloride 104 mmol/L (98-107) 12/24/16 11:39 Carbon Dioxide 24 mmol/L (22-30) 12/24/16 11:39 Anion Gap 12 (10-20) 12/24/16 11:39 BUN 11 mg/dL (9-20) 12/24/16 11:39 Creatinine 0.6 MG/DL (0.8-1.5) L 12/24/16 11:39 Est GFR ( Amer) > 60 12/24/16 11:39 Est GFR (Non-Af Amer) > 60 12/24/16 11:39 Random Glucose 175 mg/dL (75-110) H 12/24/16 11:39 Calcium 7.4 mg/dl (8.6-10.4) L 12/24/16 11:39 Phosphorus 2.5 mg/dL (2.5-4.5) 12/24/16 11:39 Magnesium 1.6 mg/dL (1.6-2.3) 12/24/16 11:39 Iron 206 ug/dL (49-181) H 12/23/16 12:12 TIBC 265 ug/dL (250-450) 12/23/16 12:12 % Saturation 77.73 (20-55) H 12/23/16 12:12 Ferritin 142.0 ng/mL 12/23/16 12:12 Total Bilirubin 3.4 mg/dL (0.2-1.3) H 12/24/16 11:39 AST 140 U/L (17-59) H D 12/24/16 11:39 ALT 140 U/L (21-72) H 12/24/16 11:39 Alkaline Phosphatase 51 U/L (38-126) 12/24/16 11:39 Total Protein 4.8 g/dL (6.3-8.3) L 12/24/16 11:39 Albumin 2.1 g/dL (3.5-5.0) L 12/24/16 11:39 Globulin 2.7 gm/dL (2.2-3.9) 12/24/16 11:39 Albumin/Globulin Ratio 0.8 (1.0-2.1) L 12/24/16 11:39 Alpha Fetoprotein 29.0 ng/mL (0.0-7.5) H 12/23/16 12:32 Vitamin B12 954 pg/mL (239-931) H 12/24/16 11:39 Urine Color Kim (YELLOW) 12/22/16 20:59 Urine Clarity Hazy (Clear) 12/22/16 20:59 Urine pH 8.0 (5.0-8.0) 12/22/16 20:59 Ur Specific [place] 1.028 (1.003-1.030) 12/22/16 20:59 Urine Protein 2+ mg/dL (NEGATIVE) H 12/22/16 20:59 Urine Glucose (UA) Normal mg/dL (Normal) 12/22/16 20:59 Urine Ketones Negative mg/dL (NEGATIVE) 12/22/16 20:59 Urine Blood Negative (NEGATIVE) 12/22/16 20:59 Urine Nitrate Negative (NEGATIVE) 12/22/16 20:59 Urine Bilirubin Negative (NEGATIVE) 12/22/16 20:59 Urine Urobilinogen 4.0 mg/dL (0.2-1.0) 12/22/16 20:59 Ur Leukocyte Esterase Neg Lino/uL (Negative) 12/22/16 20:59 Urine WBC (Auto) 1 /hpf (0-5) 12/22/16 20:59 Urine RBC (Auto) 3 /hpf (0-3) 12/22/16 20:59 Ur Squamous Epith Cells < 1 /hpf (0-5) 12/22/16 20:59 Urine Bacteria Rare (<OCC) 12/22/16 20:59 Urine Opiates Screen Negative (NEGATIVE) 12/22/16 20:59 Urine Methadone Screen Negative (NEGATIVE) 12/22/16 20:59 Ur Barbiturates Screen Negative (NEGATIVE) 12/22/16 20:59 Ur Phencyclidine Scrn Negative (NEGATIVE) 12/22/16 20:59 Ur Amphetamines Screen Negative (NEGATIVE) 12/22/16 20:59 U Benzodiazepines Scrn Negative (NEGATIVE) 12/22/16 20:59 U Oth Cocaine Metabols Negative (NEGATIVE) 12/22/16 20:59 U Cannabinoids Screen Negative (NEGATIVE) 12/22/16 20:59 Alcohol, Quantitative < 10 mg/dl (0-10) 12/22/16 20:59 Hepatitis A IgM Ab Negative (NEGATIVE) 12/23/16 12:12 Hep Bs Antigen Negative (NEGATIVE) 12/23/16 12:12 Hep Bs Antibody Indeterminate (NEGATIVE) 12/23/16 12:41 Hep B Core IgM Ab Negative (NEGATIVE) 12/23/16 12:12 Hepatitis C Antibody Reactive (NEGATIVE) H 12/23/16 12:12 HIV 1&2 Antibody Screen Negative (NEGATIVE) 12/23/16 12:32 Blood Type A POSITIVE 12/24/16 11:39 Antibody Screen Negative 12/24/16 11:39 - Hospital Course Hospital Course: Patient is stable for discharge per Psychiatry and Urology. Patient is to follow up with his primary care doctor within one week of discharge. If he does not have a primary care is is to follow up in the [facility] within one week of discharge. He has an appointment at the Clinic on January 01 9:00 AM. Patient is to follow up with urology, Dr. 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 Patient is to take the following medications: 1. Depakote 500mg one by mouth twice a day 2. Gabapentin 300mg one by mouth twice a day 3. Percocoet 5/235 one by mouth as need for pain every 8 hour 4. Zoloft 50mg one by mouth daily Patient received a list of fci from social/casework manager. Patient is to return if symptoms return or if he is feeling suicidal/homicidal. All instructions explained to the patient and he agrees. Discharge Exam - Head Exam Head Exam: ATRAUMATIC Discharge Plan - Follow Up Plan Condition: STABLE Disposition: HOME/ ROUTINE
[2016-12-25] MEDS: Sodium Chloride 0.9% 1,000 ML IV SCH ×3 (03:34→22:00)
[2016-12-25 08:14] LABS: CHLORIDE 105 mmol/L (98-107)
[2016-12-25 08:15] LABS: POTASSIUM 3.5 mmol/L (3.6-5.2); SODIUM 137 mmol/L (132-148)
[2016-12-25 08:17] LABS: ALB/GLOB RATIO 0.8 (1.0-2.1); ALKALINE PHOSPHATASE 60 U/L (38-126); AST/SGOT 121 U/L (17-59); BASO % 0.7 % (0.0-2.0); BILIRUBIN,TOTAL 2.8 mg/dL (0.2-1.3); BLOOD UREA NITROGEN 8 mg/dL (9-20); CARBON DIOXIDE 22 mmol/L (22-30); EOS # 0.1 K/uL (0.0-0.7); EOS % 3.1 % (0.0-4.0); GFR AFRICAN-AMERICAN > 60; HEMATOCRIT 35.5 % (35.0-51.0); LYMPH % 40.4 % (20.0-40.0); MEAN CELL VOLUME 105.9 fL (80.0-94.0); MEAN CORPUSCULAR HEMOGLOBIN 35.7 pg (27.0-31.0); MEAN CORPUSCULAR HGB CONC 33.7 g/dL (33.0-37.0); MEAN PLATELET VOLUME 9.1 fL (7.2-11.7); MONO # 0.2 K/uL (0.0-0.8); MONO % 6.2 % (0.0-10.0); NRBC % 0.1 % (0.0-2.0); RED CELL DISTRIBUTION WIDTH 15.6 % (11.5-14.5); TOTAL PROTEIN 4.9 g/dL (6.3-8.3); WHITE BLOOD COUNT 2.5 K/uL (4.8-10.8)
[2016-12-25 08:18] LABS: ALT/SGPT 129 U/L (21-72); CALCIUM 7.5 mg/dl (8.6-10.4); GLUCOSE,RANDOM 108 mg/dL (75-110); MAGNESIUM 1.6 mg/dL (1.6-2.3); PHOSPHOROUS 2.9 mg/dL (2.5-4.5)
[2016-12-25] MEDS: Multiple Vitamins Tab PO SCH (09:48)
[2016-12-25] MEDS: Potassium Chloride 20 mEq ER Tab PO STA ×2 (09:48→09:49)
--- NOTE | 2016-12-25 10:30 | CP.PCM.PN ---
Subjective - Date & Time of Evaluation Date of Evaluation: 12/25/16 Time of Evaluation: 10:27 - Subjective Subjective: Resting in bed, tolerating diet, no bleeding or vomiting Platelets 18k today Objective - Vital Signs/Intake and Output Vital Signs (last 24 hours): Temp Pulse Resp BP Pulse Ox 97.8 F 82 18 101/63 95 12/25/16 08:00 12/25/16 08:00 12/25/16 08:00 12/25/16 08:00 12/25/16 08:00 Intake and Output: 12/25/16 12/25/16 06:59 18:59 Intake Total 800 Balance 800 - Medications Medications: Current Medications Famotidine (Pepcid) 20 mg PO DAILY [facility] Last Admin: 12/25/16 09:48 Dose: 20 mg Folic Acid (Folic Acid) 1 mg PO DAILY [facility] Last Admin: 12/25/16 09:50 Dose: 1 mg Sodium Chloride (Sodium Chloride 0.9%) 1,000 mls @ 100 mls/hr IV .Q10H [facility] Last Admin: 12/25/16 03:34 Dose: 100 mls/hr Lactated Ringer's (Lactated Ringer's) 1,000 mls @ 75 mls/hr IV .[id number] [facility] Lorazepam (Ativan) 1 mg PO Q4H PRN PRN Reason: Symptoms of alcohol withdrawl Lorazepam (Ativan) 2 mg PO Q12H [facility] PRN Reason: Taper Stop: 12/27/16 08:59 Last Admin: 12/25/16 09:49 Dose: Not Given Multivitamins (Hexavitamin) 1 tab PO DAILY [facility] Last Admin: 12/25/16 09:48 Dose: 1 tab Ondansetron HCl (Zofran Tab) 4 mg PO Q8 PRN PRN Reason: Nausea/Vomiting Thiamine HCl (Vitamin B1 Tab) 100 mg PO DAILY [facility] Last Admin: 12/25/16 09:49 Dose: 100 mg Topiramate (Topamax) 25 mg PO BID [facility] Last Admin: 12/24/16 17:25 Dose: 25 mg Trazodone HCl (Desyrel) 50 mg PO HS PRN PRN Reason: Insomnia Last Admin: 12/23/16 00:10 Dose: 50 mg - Labs Labs: 12/25/16 08:02 12/25/16 08:02 PT 17.9 SECONDS (9.7-12.2) H 12/24/16 11:39 INR 1.5 12/24/16 11:39 APTT 37 SECONDS (21-34) H 12/24/16 11:39 - Constitutional Appears: No Acute Distress - Respiratory Exam Respiratory Exam: NORMAL BREATHING PATTERN - Cardiovascular Exam Cardiovascular Exam: REGULAR RHYTHM - GI/Abdominal Exam GI & Abdominal Exam: Soft, Normal Bowel Sounds, Organomegaly. absent: Tenderness - Extremities Exam Extremities Exam: Normal Inspection Assessment and Plan (1) Hematemesis Status: Resolved (2) Alcoholic hepatitis Assessment & Plan: abstain, alcohol rehab advised Status: Acute (3) Abnormal transaminases Assessment & Plan: due to above. Viral markers and CLD markers ordered and pending Likely all due to alcohol Follow up in outpatient medical clinic and GI referral may be given if needed. Status: Acute (4) Thrombocytopenia Assessment & Plan: Chronic and due to hypersplenism and bone marrow suppression No bleeding Status: Acute (5) Ulcerative esophagitis Assessment & Plan: Needs to be on PPI to heal severe ulcerative reflux disease Recall as needed thank you Status: Acute
[2016-12-25 12:26] LABS: HAV AB (IGM) Nonreactive (Nonreactive)
--- NOTE | 2016-12-25 14:28 | PCM.PYCHPN ---
Psychiatric Progress Note - Psychiatric Progress Note Patient seen today, length of contact: 15 min Patient Chief Complaint: "I'm OK" Problems Identified/Issues Discussed: The pt is seen, chart reviewed, case discussed with staff. The pt is compliant with medications and reports no side-effects. Symptoms are improving but needs more time to stabilize. After care discussed, support and psychoeducation given. Medication Change: Yes (detox changes daily) Medical Record Reviewed: Yes Mental Status Examination - Cognitive Function Orientation: Person, Place, Situation, Time Memory: Impaired Attention: Poor Concentration: Poor Association: WNL Fund of Knowledge: WNL - Mood Mood: Anxious - Affect Affect: Blunted - Speech Speech: Appropriate - Formal Thought Process Formal Thought Process: No Impairment - Suicidal Ideation Suicidal Ideation: No - Homicidal Ideation Homicidal Ideation: No Goal/Treatment Plan - Goal/Treatment Plan Need for Continued Stay: Severe functional impairment Progress Toward Problem(s) and Goals/Treatment Plan: -Ativan detox continues, Day #3 -Gabapentin -As needed medications -Support and psychoeducation -MO and CBT for abstinence
--- NOTE | 2016-12-25 15:04 | CT ---
PROCEDURE: CT HEAD WITHOUT CONTRAST. HISTORY: r/o bleed, patient not oriented COMPARISON: None available. TECHNIQUE: Axial computed tomography images were obtained through the head/brain without intravenous contrast. Radiation dose: Total exam DLP = 1206 mGy-cm. FINDINGS: HEMORRHAGE: No intracranial hemorrhage. BRAIN: No mass effect or edema. There is chronic appearing encephalomalacia and atrophy in the right temporal lobe. The findings are best seen on image 10 and 11 of series 2 VENTRICLES: Unremarkable. No hydrocephalus. CALVARIUM: Unremarkable. PARANASAL SINUSES: Unremarkable as visualized. No significant inflammatory changes. MASTOID AIR CELLS: Unremarkable as visualized. No inflammatory changes. OTHER FINDINGS: None. IMPRESSION: Chronic encephalomalacia and atrophy in the right temporal lobe
--- NOTE | 2016-12-25 16:19 | CP.PCM.PN ---
<Batsheva Antony - Last Filed: 12/25/16 16:17> Subjective - Date & Time of Evaluation Date of Evaluation: 12/25/16 Time of Evaluation: 07:20 - Subjective Subjective: PGY [address] De La Rosa: Patient seen and examined at bedside this morning. He still feels fatigued but does not complain of any alcohol withdrawal symptoms, including headache, nausea , vomiting, and tremors. Patient also denies dizziness, blurry vision, cough, SOB, palpitations diarrhea, dysuria, bleeding, dwelling, numbness, and tingling. He was oriented to place and to the year, but not to the month. Objective - Vital Signs/Intake and Output Vital Signs (last 24 hours): Temp Pulse Resp BP Pulse Ox 97.7 F 80 18 130/79 94 L 12/25/16 15:38 12/25/16 15:38 12/25/16 15:38 12/25/16 15:38 12/25/16 15:38 Intake and Output: 12/25/16 12/25/16 06:59 18:59 Intake Total 800 800 Balance 800 800 - Medications Medications: Current Medications Famotidine (Pepcid) 20 mg PO DAILY [facility] Last Admin: 12/25/16 09:48 Dose: 20 mg Folic Acid (Folic Acid) 1 mg PO DAILY [facility] Last Admin: 12/25/16 09:50 Dose: 1 mg Sodium Chloride (Sodium Chloride 0.9%) 1,000 mls @ 100 mls/hr IV .Q10H [facility] Last Admin: 12/25/16 14:32 Dose: Not Given Lactated Ringer's (Lactated Ringer's) 1,000 mls @ 75 mls/hr IV .[id number] [facility] Last Admin: 12/25/16 11:26 Dose: 75 mls/hr Lorazepam (Ativan) 1 mg PO Q4H PRN PRN Reason: Symptoms of alcohol withdrawl Lorazepam (Ativan) 2 mg PO Q12H [facility] PRN Reason: Taper Stop: 12/27/16 08:59 Last Admin: 12/25/16 09:49 Dose: Not Given Multivitamins (Hexavitamin) 1 tab PO DAILY [facility] Last Admin: 12/25/16 09:48 Dose: 1 tab Ondansetron HCl (Zofran Tab) 4 mg PO Q8 PRN PRN Reason: Nausea/Vomiting Pantoprazole Sodium (Protonix Ec Tab) 40 mg PO DAILY [facility] Thiamine HCl (Vitamin B1 Tab) 100 mg PO DAILY [facility] Last Admin: 12/25/16 09:49 Dose: 100 mg Topiramate (Topamax) 25 mg PO BID [facility] Last Admin: 12/25/16 10:00 Dose: 25 mg Trazodone HCl (Desyrel) 50 mg PO HS PRN PRN Reason: Insomnia Last Admin: 12/23/16 00:10 Dose: 50 mg - Labs Labs: 12/25/16 08:02 12/25/16 08:02 PT 17.9 SECONDS (9.7-12.2) H 12/24/16 11:39 INR 1.5 12/24/16 11:39 APTT 37 SECONDS (21-34) H 12/24/16 11:39 - Constitutional Appears: Non-toxic, No Acute Distress, Unkempt, Confused - Head Exam Head Exam: ATRAUMATIC, NORMAL INSPECTION - Eye Exam Eye Exam: EOMI, Normal appearance, PERRL, Scleral icterus Pupil Exam: NORMAL ACCOMODATION - ENT Exam ENT Exam: Mucous Membranes Dry - Respiratory Exam Respiratory Exam: Clear to Ausculation Bilateral, NORMAL BREATHING PATTERN. absent: Accessory Muscle Use, Chest Wall Tenderness, Respiratory Distress - Cardiovascular Exam Cardiovascular Exam: REGULAR RHYTHM, +S1, +S2 - GI/Abdominal Exam GI & Abdominal Exam: Distended, Soft, Normal Bowel Sounds. absent: Firm, Guarding, Tenderness - Extremities Exam Extremities Exam: Normal Inspection. absent: Calf Tenderness, Pedal Edema - Back Exam Back Exam: NORMAL INSPECTION. absent: CVA tenderness (L), CVA tenderness (R), paraspinal tenderness - Neurological Exam Neurological Exam: Alert, Awake, CN II-XII Intact. absent: Oriented x3 - Psychiatric Exam Psychiatric exam: Flat Affect, Normal Affect, Normal Mood - Skin Skin Exam: Dry, Intact, Normal Color, Warm Additional comments: mild jaundice Assessment and Plan - Assessment and Plan (Free Text) Assessment: (1) Alcohol intoxication Status: Acute Comment: Ativan taper (day 2). Monitor for withdrawal. patient is alcohol dependent and heavy alcohol use. Started on IV fluids Transferred out to telemetry from detox for further monitoring in light of severe thrombocytopenia Psych on board Head CT 12/25 - No acute bleed, Chronic encephalomalacia and atrophy in the right temporal lobe (2) Thrombocytopenia Status: Acute Comment: 12/25: platelet count 18 12/23: severe thrombocytopenia (18,000). Platelet manual count: 20 12/24: platelets: 16,000; no observed new rashes, no reported bleeding episodes; monitor for bleeding; May need transfuse if falls below 10k or bleeding Peripheral smear ordered: reviewed in laboratory: appears hypochromic, one megakaryocyte, no observed schistocytes on 12/23/16. Patient to be transferred out to telemetry for further monitoring on 12/23. Heme-oncology (Dr. Chelo Marques) on board--->help appreciated Patient has substantial alcohol history; drinking 12, 24 ounces. Alcohol cirrhosis Discussed with ICU, patient is not ICU candidate on 12/23/16 UDS: negative (3) Abnormal transaminases Status: Acute Comment: Patient is hepatitis C positive. Liver function tests are downtrending Abdominal US (12/23/16): probable hepatic cirrhosis. Ascites. Splenomeglay. Partially contracted gallbladder with cholelithiasis and thicekned wall. negative sonographic Villalta's sign. Equivocal for cholecystitis. (4) Hematemesis Status: suspected Comment: Dr. Gilliam (GI) on board-->help appreciated, rec PPI to heal severe ulcerative reflux disease s/p endoscopy (12/23). Findings: reflux esophagitits. No specimens collected. Small hiatus hernia. Gastritis. No specimens collected. Normal examined duodenum ; per GI recommended for Protonix and repeat upper endoscopy in 2 months to check healing. hemoglobin stable No reported further episodes of hematemesis (5) Pancytopenia Status: Acute Comment: Likely due to alcohol use. HIV: negative. Hepatitis panel: positive Hep C+. Heme-oncology (Dr. Chelo Marques) on consult Fe - 206 % Sat - 76 TIBC - 265 Ferritin - 142 (6) Hypomagnesemia Status: resolved Comment: repleted Mg2+: 1.6 normal limit Will give 1 gram IV today (7) Prophylactic measure Status: Acute Comment: Hold anticoagulation secondary to severe thrombocytopenia GI ppx: Protonic 40mg PO daily On telemetry for further monitoring Out of bed to chair, fall risk precautions <Yvonne De La Rosa V - Last Filed: 12/26/16 00:32> Objective - Vital Signs/Intake and Output Vital Signs (last 24 hours): Temp Pulse Resp BP Pulse Ox 97.7 F 80 18 130/79 94 L 12/25/16 15:38 12/25/16 15:38 12/25/16 15:38 12/25/16 15:38 12/25/16 15:38 Intake and Output: 12/25/16 12/26/16 18:59 06:59 Intake Total 800 Balance 800 - Medications Medications: Current Medications Famotidine (Pepcid) 20 mg PO DAILY [facility] Last Admin: 12/25/16 09:48 Dose: 20 mg Folic Acid (Folic Acid) 1 mg PO DAILY [facility] Last Admin: 12/25/16 09:50 Dose: 1 mg Sodium Chloride (Sodium Chloride 0.9%) 1,000 mls @ 100 mls/hr IV .Q10H [facility] Last Admin: 12/25/16 22:00 Dose: 100 mls/hr Lactated Ringer's (Lactated Ringer's) 1,000 mls @ 75 mls/hr IV .[id number] [facility] Last Admin: 12/25/16 11:26 Dose: 75 mls/hr Lorazepam (Ativan) 1 mg PO Q4H PRN PRN Reason: Symptoms of alcohol withdrawl Lorazepam (Ativan) 2 mg PO Q12H [facility] PRN Reason: Taper Stop: 12/27/16 08:59 Last Admin: 12/25/16 21:00 Dose: Not Given Multivitamins (Hexavitamin) 1 tab PO DAILY [facility] Last Admin: 12/25/16 09:48 Dose: 1 tab Ondansetron HCl (Zofran Tab) 4 mg PO Q8 PRN PRN Reason: Nausea/Vomiting Pantoprazole Sodium (Protonix Ec Tab) 40 mg PO DAILY [facility] Thiamine HCl (Vitamin B1 Tab) 100 mg PO DAILY [facility] Last Admin: 12/25/16 09:49 Dose: 100 mg Topiramate (Topamax) 25 mg PO BID [facility] Last Admin: 12/25/16 18:00 Dose: 25 mg Trazodone HCl (Desyrel) 50 mg PO HS PRN PRN Reason: Insomnia Last Admin: 12/23/16 00:10 Dose: 50 mg - Labs Labs: 12/25/16 08:02 12/25/16 08:02 PT 17.9 SECONDS (9.7-12.2) H 12/24/16 11:39 INR 1.5 12/24/16 11:39 APTT 37 SECONDS (21-34) H 12/24/16 11:39 Assessment and Plan (1) Alcohol intoxication Status: Acute (2) Thrombocytopenia Status: Acute (3) Abnormal transaminases Status: Acute (4) Hematemesis Status: Resolved (5) Pancytopenia Status: Acute (6) Hypomagnesemia Status: Acute (7) Prophylactic measure Status: Acute Attending/Attestation - Attestation I have personally seen and examined this patient.: Yes I have fully participated in the care of the patient.: Yes I have reviewed all pertinent clinical information, including history, physical exam and plan: Yes Notes (Text): This is a late computer entry for 12/25/16. Patient seen, examined and case discussed with day-time resident. Patient is awake, alert, understands he is at the hospital and reports the jacobo you says "you're fired" is President. Patient is drowsy, is in bed. Patient neurologically appears intact and speech is coherent. Patient advised to sit upright in chair. Physical therapy eval ordered. Patient ordered for CT head which showed atrophy, no bleed noted. Platelets are slowly improving Per GI, recommended for PO protonix, f/u GI clinic, reconsult if necessary PT eval ordered On ativan taper (day 3) Assessment & Plan (1) Alcohol intoxication Status: Acute Comment: Ativan taper (day 3). Monitor for withdrawal. patient is alcohol dependent and heavy alcohol use. Started on IV fluids Transferred out to telemetry from detox for further monitoring in light of severe thrombocytopenia Psych on board (2) Thrombocytopenia Status: Acute Comment: 12/23: severe thrombocytopenia (18,000). Platelet manual count: 20 12/24: platelets: 16,000; no observed new rashes, no reported bleeding episodes; monitor for bleeding; May need transfuse if falls below 10k or bleeding 12/25: platelets: 18,000 no observed new rashes, no reported bleeding episodes; monitor for bleeding: Ct head negative for bleed Peripheral smear ordered: reviewed in laboratory: appears hypochromic, one megakaryocyte, no observed schistocytes on 12/23/16. Patient to be transferred out to telemetry for further monitoring on 12/23. Heme-oncology (Dr. Chelo Marques) on board--->help appreciated Patient has substantial alcohol history; drinking 12, 24 ounces. Alcohol cirrhosis Discussed with ICU, patient is not ICU candidate on 12/23/16 UDS: negative (3) Abnormal transaminases Status: Acute Comment: Patient is hepatitis C positive. Liver function tests are downtrending Abdominal US (12/23/16): probable hepatic cirrhosis. Ascites. Splenomeglay. Partially contracted gallbladder with cholelithiasis and thicekned wall. negative sonographic Villalta's sign. Equivocal for cholecystitis. (4) Hematemesis Status: suspected Comment: Dr. Gilliam (GI) on board-->help appreciated s/p endoscopy (12/23). Findings: reflux esophagitits. No specimens collected. Small hiatus hernia. Gastritis. No specimens collected. Normal examined duodenum ; per GI recommended for Protonix and repeat upper endoscopy in 2 months to check healing. hemoglobin stable No reported further episodes of hematemesis Protonix 40mg PO daily (5) Pancytopenia Status: Acute Comment: Likely due to alcohol use. HIV: negative. Hepatitis panel: positive Hep C+/Ab+ Heme-oncology (Dr. Chelo Marques) on consult (6) Hypomagnesemia Status: resolved Comment: Monitor (7) Prophylactic measure Status: Acute Comment: Hold anticoagulation secondary to severe thrombocytopenia GI ppx: Protonix 40mg PO daily On telemetry for further monitoring Out to chair physical therapy eval
--- NOTE | 2016-12-26 00:23 | CP.PCM.PN ---
Subjective - Date & Time of Evaluation Date of Evaluation: 12/25/16 Time of Evaluation: 13:20 - Subjective Subjective: Drowsy, no complaints. Objective - Vital Signs/Intake and Output Vital Signs (last 24 hours): Temp Pulse Resp BP Pulse Ox 97.7 F 80 18 130/79 94 L 12/25/16 15:38 12/25/16 15:38 12/25/16 15:38 12/25/16 15:38 12/25/16 15:38 Intake and Output: 12/25/16 12/26/16 18:59 06:59 Intake Total 800 Balance 800 - Medications Medications: Current Medications Famotidine (Pepcid) 20 mg PO DAILY [facility] Last Admin: 12/25/16 09:48 Dose: 20 mg Folic Acid (Folic Acid) 1 mg PO DAILY [facility] Last Admin: 12/25/16 09:50 Dose: 1 mg Sodium Chloride (Sodium Chloride 0.9%) 1,000 mls @ 100 mls/hr IV .Q10H [facility] Last Admin: 12/25/16 22:00 Dose: 100 mls/hr Lactated Ringer's (Lactated Ringer's) 1,000 mls @ 75 mls/hr IV .[id number] [facility] Last Admin: 12/25/16 11:26 Dose: 75 mls/hr Lorazepam (Ativan) 1 mg PO Q4H PRN PRN Reason: Symptoms of alcohol withdrawl Lorazepam (Ativan) 2 mg PO Q12H [facility] PRN Reason: Taper Stop: 12/27/16 08:59 Last Admin: 12/25/16 21:00 Dose: Not Given Multivitamins (Hexavitamin) 1 tab PO DAILY [facility] Last Admin: 12/25/16 09:48 Dose: 1 tab Ondansetron HCl (Zofran Tab) 4 mg PO Q8 PRN PRN Reason: Nausea/Vomiting Pantoprazole Sodium (Protonix Ec Tab) 40 mg PO DAILY [facility] Thiamine HCl (Vitamin B1 Tab) 100 mg PO DAILY [facility] Last Admin: 12/25/16 09:49 Dose: 100 mg Topiramate (Topamax) 25 mg PO BID [facility] Last Admin: 12/25/16 18:00 Dose: 25 mg Trazodone HCl (Desyrel) 50 mg PO HS PRN PRN Reason: Insomnia Last Admin: 12/23/16 00:10 Dose: 50 mg - Labs Labs: 12/25/16 08:02 12/25/16 08:02 PT 17.9 SECONDS (9.7-12.2) H 12/24/16 11:39 INR 1.5 12/24/16 11:39 APTT 37 SECONDS (21-34) H 12/24/16 11:39 - Head Exam Head Exam: ATRAUMATIC - Eye Exam Eye Exam: Normal appearance - ENT Exam ENT Exam: Mucous Membranes Dry - Respiratory Exam Respiratory Exam: NORMAL BREATHING PATTERN - Cardiovascular Exam Cardiovascular Exam: +S1, +S2 - GI/Abdominal Exam GI & Abdominal Exam: Normal Bowel Sounds - Extremities Exam Extremities Exam: Normal Inspection Assessment and Plan (1) Pancytopenia Assessment & Plan: liver disease, splenic sequestration Status: Acute (2) Coagulopathy Assessment & Plan: liver disease Status: Acute (3) Splenomegaly Assessment & Plan: liver disease Status: Acute
[2016-12-26 07:38] LABS: BASO % 0.7 % (0.0-2.0); EOS # 0.1 K/uL (0.0-0.7); EOS % 3.1 % (0.0-4.0); HEMATOCRIT 36.3 % (35.0-51.0); LYMPH % 41.2 % (20.0-40.0); MEAN CELL VOLUME 105.7 fL (80.0-94.0); MEAN CORPUSCULAR HEMOGLOBIN 35.3 pg (27.0-31.0); MEAN CORPUSCULAR HGB CONC 33.4 g/dL (33.0-37.0); MONO # 0.2 K/uL (0.0-0.8); MONO % 8.1 % (0.0-10.0); NRBC % 0.2 % (0.0-2.0); RED CELL DISTRIBUTION WIDTH 15.5 % (11.5-14.5); WHITE BLOOD COUNT 2.5 K/uL (4.8-10.8)
[2016-12-26 07:55] LABS: CHLORIDE 108 mmol/L (98-107); SODIUM 142 mmol/L (132-148)
[2016-12-26 07:56] LABS: POTASSIUM 3.6 mmol/L (3.6-5.2)
[2016-12-26 07:57] LABS: GFR AFRICAN-AMERICAN > 60
[2016-12-26 07:58] LABS: ALKALINE PHOSPHATASE 80 U/L (38-126); AST/SGOT 116 U/L (17-59); BILIRUBIN,TOTAL 2.4 mg/dL (0.2-1.3); BLOOD UREA NITROGEN 8 mg/dL (9-20); CARBON DIOXIDE 23 mmol/L (22-30); GLUCOSE,RANDOM 91 mg/dL (75-110); PHOSPHOROUS 3.7 mg/dL (2.5-4.5)
[2016-12-26 07:59] LABS: ALT/SGPT 135 U/L (21-72); CALCIUM 7.3 mg/dl (8.6-10.4); MAGNESIUM 1.6 mg/dL (1.6-2.3)
--- NOTE | 2016-12-26 08:00 | CP.PCM.PN ---
<Yvonne De La Rosa V - Last Filed: 12/26/16 18:46> Objective - Vital Signs/Intake and Output Vital Signs (last 24 hours): Temp Pulse Resp BP Pulse Ox 97.9 F 87 20 118/73 93 L 12/26/16 15:41 12/26/16 17:04 12/26/16 15:41 12/26/16 15:41 12/26/16 15:41 Intake and Output: 12/26/16 12/26/16 06:59 18:59 Intake Total 800 Balance 800 - Medications Medications: Current Medications Folic Acid (Folic Acid) 1 mg PO DAILY [facility] Last Admin: 12/26/16 10:24 Dose: 1 mg Lorazepam (Ativan) 1 mg PO Q4H PRN PRN Reason: Symptoms of alcohol withdrawl Lorazepam (Ativan) 2 mg PO Q24H [facility] PRN Reason: Taper Stop: 12/27/16 08:59 Last Admin: 12/26/16 10:24 Dose: Not Given Multivitamins (Hexavitamin) 1 tab PO DAILY [facility] Last Admin: 12/26/16 10:24 Dose: 1 tab Ondansetron HCl (Zofran Tab) 4 mg PO Q8 PRN PRN Reason: Nausea/Vomiting Pantoprazole Sodium (Protonix Ec Tab) 40 mg PO DAILY [facility] Last Admin: 12/26/16 10:24 Dose: 40 mg Thiamine HCl (Vitamin B1 Tab) 100 mg PO DAILY [facility] Last Admin: 12/26/16 10:25 Dose: 100 mg Topiramate (Topamax) 25 mg PO BID [facility] Last Admin: 12/26/16 10:25 Dose: 25 mg Trazodone HCl (Desyrel) 50 mg PO HS PRN PRN Reason: Insomnia Last Admin: 12/23/16 00:10 Dose: 50 mg - Labs Labs: 12/26/16 07:29 12/26/16 07:29 PT 17.9 SECONDS (9.7-12.2) H 12/24/16 11:39 INR 1.5 12/24/16 11:39 APTT 37 SECONDS (21-34) H 12/24/16 11:39 Assessment and Plan (1) Alcohol intoxication Status: Acute (2) Thrombocytopenia Status: Acute (3) Abnormal transaminases Status: Acute (4) Hematemesis Status: Resolved (5) Pancytopenia Status: Acute (6) Hypomagnesemia Status: Acute (7) Prophylactic measure Status: Acute Attending/Attestation - Attestation I have personally seen and examined this patient.: Yes I have fully participated in the care of the patient.: Yes I have reviewed all pertinent clinical information, including history, physical exam and plan: Yes Notes (Text): Patient seen, examined and case discussed with day-time resident. Patient is awake, alert, understands he is at the hospital and reports the jacobo you says "you're fired" is President. Patient is drowsy, is in bed. Patient neurologically appears intact and speech is coherent. Patient seen working with physical therapy. Reporting he is feeling better. Platelets are mildly improving. Will need to f/u heme onc in terms of when patient is stable per platelets. Patient denies any further episodes of bleeding since admission. On ativan taper (day 4) Assessment & Plan (1) Alcohol intoxication Status: Acute Comment: Ativan taper (day 4). Monitor for withdrawal. patient is alcohol dependent and heavy alcohol use. d/c IV fluids Transferred out to telemetry from detox for further monitoring in light of severe thrombocytopenia Psych on board (2) Thrombocytopenia Status: Acute Comment: 12/23: severe thrombocytopenia (18,000). Platelet manual count: 20 12/24: platelets: 16,000; no observed new rashes, no reported bleeding episodes; monitor for bleeding; May need transfuse if falls below 10k or bleeding 12/25: platelets: 18,000 no observed new rashes, no reported bleeding episodes; monitor for bleeding: Ct head negative for bleed 12/26: platelets: 19,000 no observed new rashes, no reported bleeding episodes; monitor for bleeding: Ct head negative for bleed Peripheral smear ordered: reviewed in laboratory: appears hypochromic, one megakaryocyte, no observed schistocytes on 12/23/16. Patient to be transferred out to telemetry for further monitoring on 12/23. Heme-oncology (Dr. Chelo Marques) on board--->help appreciated Patient has substantial alcohol history; drinking 12, 24 ounces. Alcohol cirrhosis Discussed with ICU, patient is not ICU candidate on 12/23/16 UDS: negative pending when patient is stable from heme-onc standpoint (3) Abnormal transaminases Status: Acute Comment: Patient is hepatitis C positive and hepatitis Ab; will need to follow-up with GI in clinic Liver function tests about the same Abdominal US (12/23/16): probable hepatic cirrhosis. Ascites. Splenomeglay. Partially contracted gallbladder with cholelithiasis and thicekned wall. negative sonographic Villalta's sign. Equivocal for cholecystitis. (4) Hematemesis Status: resolved Comment: Dr. Gilliam (GI) on board-->help appreciated s/p endoscopy (12/23). Findings: reflux esophagitits. No specimens collected. Small hiatus hernia. Gastritis. No specimens collected. Normal examined duodenum ; per GI recommended for Protonix and repeat upper endoscopy in 2 months to check healing. hemoglobin stable No reported further episodes of hematemesis Protonix 40mg PO daily (5) Pancytopenia Status: Acute Comment: Likely due to alcohol use. HIV: negative. Hepatitis panel: positive Hep C+/Ab+ Heme-oncology (Dr. Chelo Marques) on consult (6) Hypomagnesemia Status: resolved Comment: Monitor (7) Prophylactic measure Status: Acute Comment: Hold anticoagulation secondary to severe thrombocytopenia GI ppx: Protonix 40mg PO daily On telemetry for further monitoring Out to chair physical therapy eval <Chucho Clark - Last Filed: 12/26/16 23:31> Subjective - Date & Time of Evaluation Date of Evaluation: 12/26/16 Time of Evaluation: 07:35 - Subjective Subjective: PGY [address] De La Rosa: Patient seen and examined at bedside this morning. No overnight events per nursing. Patient continues to feel fatigued, but does not complain of alcohol withdrawal symptoms. Denies headache, dizziness, nausea, vomiting, and overt tremors. Tolerating diet well, no acute complaints. Denies f/c, blurry vision, chest pain, cough, SOB, diarrhea, dysuria, numbness/tingling, or any additional complaints. Objective - Vital Signs/Intake and Output Vital Signs (last 24 hours): Temp Pulse Resp BP Pulse Ox 98.4 F 87 18 120/76 94 L 12/25/16 23:20 12/26/16 01:45 12/25/16 23:20 12/25/16 23:20 12/25/16 23:20 Intake and Output: 12/26/16 12/26/16 06:59 18:59 Intake Total 800 Balance 800 - Medications Medications: Current Medications Famotidine (Pepcid) 20 mg PO DAILY [facility] Last Admin: 12/25/16 09:48 Dose: 20 mg Folic Acid (Folic Acid) 1 mg PO DAILY [facility] Last Admin: 12/25/16 09:50 Dose: 1 mg Sodium Chloride (Sodium Chloride 0.9%) 1,000 mls @ 100 mls/hr IV .Q10H [facility] Last Admin: 12/25/16 22:00 Dose: 100 mls/hr Lorazepam (Ativan) 1 mg PO Q4H PRN PRN Reason: Symptoms of alcohol withdrawl Lorazepam (Ativan) 2 mg PO Q12H [facility] PRN Reason: Taper Stop: 12/27/16 08:59 Last Admin: 12/25/16 21:00 Dose: Not Given Multivitamins (Hexavitamin) 1 tab PO DAILY [facility] Last Admin: 12/25/16 09:48 Dose: 1 tab Ondansetron HCl (Zofran Tab) 4 mg PO Q8 PRN PRN Reason: Nausea/Vomiting Pantoprazole Sodium (Protonix Ec Tab) 40 mg PO DAILY [facility] Thiamine HCl (Vitamin B1 Tab) 100 mg PO DAILY [facility] Last Admin: 12/25/16 09:49 Dose: 100 mg Topiramate (Topamax) 25 mg PO BID [facility] Last Admin: 12/25/16 18:00 Dose: 25 mg Trazodone HCl (Desyrel) 50 mg PO HS PRN PRN Reason: Insomnia Last Admin: 12/23/16 00:10 Dose: 50 mg - Labs Labs: 12/26/16 07:29 12/25/16 08:02 PT 17.9 SECONDS (9.7-12.2) H 12/24/16 11:39 INR 1.5 12/24/16 11:39 APTT 37 SECONDS (21-34) H 12/24/16 11:39 - Additional Findings Additional findings: - Constitutional Appears: Non-toxic, No Acute Distress, Confused - Head Exam Head Exam: ATRAUMATIC, NORMAL INSPECTION - Eye Exam Eye Exam: EOMI, Normal appearance, PERRL, Scleral icterus Pupil Exam: NORMAL ACCOMODATION - ENT Exam ENT Exam: Mucous Membranes Dry - Respiratory Exam Respiratory Exam: Clear to Ausculation Bilateral, NORMAL BREATHING PATTERN. absent: Accessory Muscle Use, Chest Wall Tenderness, Respiratory Distress - Cardiovascular Exam Cardiovascular Exam: REGULAR RHYTHM, +S1, +S2 - GI/Abdominal Exam GI & Abdominal Exam: Distended, Soft, Normal Bowel Sounds. absent: Firm, Guarding, Tenderness - Extremities Exam Extremities Exam: Pedal Edema (mild b/l pitting to mid moore) absent: Calf Tenderness - Back Exam Back Exam: NORMAL INSPECTION. absent: CVA tenderness (L), CVA tenderness (R), paraspinal tenderness - Neurological Exam Neurological Exam: Alert, Awake, CN II-XII Intact. absent: Oriented x3 - Psychiatric Exam Psychiatric exam: Flat Affect, Normal Affect, Normal Mood - Skin Skin Exam: Dry, Intact, Normal Color, Warm Additional comments: mild jaundice Assessment and Plan - Assessment and Plan (Free Text) Assessment: (1) Alcohol intoxication Status: Acute Comment: 12/26: Ativan taper (day 3). Patient is detoxing well. Psych on board. Monitor for withdrawal. patient is alcohol dependent and heavy alcohol use. Started on IV fluids Transferred out to telemetry from detox for further monitoring in light of severe thrombocytopenia Head CT 12/25 - No acute bleed, Chronic encephalomalacia and atrophy in the right temporal lobe (2) Thrombocytopenia Status: Acute Comment: 12/26: platelet count 19; Chronic and due to hypersplenism and bone marrow suppression 12/25: platelet count 18 12/23: severe thrombocytopenia (18,000). Platelet manual count: 20 12/24: platelets: 16,000; no observed new rashes, no reported bleeding episodes; monitor for bleeding; May need transfuse if falls below 10k or bleeding Peripheral smear ordered: reviewed in laboratory: appears hypochromic, one megakaryocyte, no observed schistocytes on 12/23/16. Patient to be transferred out to telemetry for further monitoring on 12/23. Heme-oncology (Dr. Chelo Marques) on board--->help appreciated Patient has substantial alcohol history; drinking 12, 24 ounces. Alcohol cirrhosis Discussed with ICU, patient is not ICU candidate on 12/23/16 UDS: negative (3) Abnormal transaminases Status: Acute Comment: Patient is hepatitis C positive; Hepatitis A Ab reactive; Hepatitis A IgM (-) Liver function tests are downtrending Abdominal US (12/23/16): probable hepatic cirrhosis. Ascites. Splenomeglay. Partially contracted gallbladder with cholelithiasis and thicekned wall. negative sonographic Villalta's sign. Equivocal for cholecystitis. (4) Hematemesis - Resolved Status: suspected Comment: 12/26: Dr. Gilliam signed off, re-call as needed Dr. Gilliam (GI) on board-->help appreciated, rec PPI to heal severe ulcerative reflux disease s/p endoscopy (12/23). Findings: reflux esophagitits. No specimens collected. Small hiatus hernia. Gastritis. No specimens collected. Normal examined duodenum ; per GI recommended for Protonix and repeat upper endoscopy in 2 months to check healing. hemoglobin stable No reported further episodes of hematemesis (5) Pancytopenia Status: Acute Comment: Likely due to alcohol use. HIV: negative. Hepatitis C positive; Hepatitis A Ab reactive; Hepatitis A IgM (-) Heme-oncology (Dr. Chelo Marques) on consult Fe - 206 % Sat - 76 TIBC - 265 Ferritin - 142 (6) Hypomagnesemia Status: resolved Comment: repleted Mg2+: 1.6 normal limit Will give 1 gram IV today (7) Prophylactic measure Status: Acute Comment: Hold anticoagulation secondary to severe thrombocytopenia GI ppx: Protonic 40mg PO daily On telemetry for further monitoring Out of bed to chair, fall risk precautions
[2016-12-26 08:18] LABS: ALB/GLOB RATIO 0.9 (1.0-2.1)
[2016-12-26] MEDS: Multiple Vitamins Tab PO SCH (10:24)
[2016-12-26] MEDS: Pantoprazole 40 mg EC Tab PO SCH (10:24)
[2016-12-26] MEDS: Sodium Chloride 0.9% 1,000 ML IV SCH (10:25)
[2016-12-26 15:47] VITALS: RESP 20
--- NOTE | 2016-12-27 00:38 | CP.PCM.PN ---
<Batsheva Antony - Last Filed: 12/27/16 00:35> Subjective - Date & Time of Evaluation Date of Evaluation: 12/27/16 Time of Evaluation: 00:30 - Subjective Subjective: PGY [address] De La Rosa: Patient seen and examined at bedside. He was sleeping comfortably in bed. He said he still feels fatigued but does not complain of any alcohol withdrawal symptoms, including headache, nausea, vomiting, and tremors. Patient also denies dizziness, blurry vision, cough, SOB, palpitations diarrhea, dysuria, bleeding, dwelling, numbness, and tingling. Objective - Vital Signs/Intake and Output Vital Signs (last 24 hours): Temp Pulse Resp BP Pulse Ox 97.9 F 87 20 118/73 93 L 12/26/16 15:41 12/26/16 17:04 12/26/16 15:41 12/26/16 15:41 12/26/16 15:41 Intake and Output: 12/26/16 12/27/16 18:59 06:59 Intake Total 360 Balance 360 - Medications Medications: Current Medications Folic Acid (Folic Acid) 1 mg PO DAILY [facility] Last Admin: 12/26/16 10:24 Dose: 1 mg Lorazepam (Ativan) 1 mg PO Q4H PRN PRN Reason: Symptoms of alcohol withdrawl Lorazepam (Ativan) 2 mg PO Q24H [facility] PRN Reason: Taper Stop: 12/27/16 08:59 Last Admin: 12/26/16 10:24 Dose: Not Given Multivitamins (Hexavitamin) 1 tab PO DAILY [facility] Last Admin: 12/26/16 10:24 Dose: 1 tab Ondansetron HCl (Zofran Tab) 4 mg PO Q8 PRN PRN Reason: Nausea/Vomiting Pantoprazole Sodium (Protonix Ec Tab) 40 mg PO DAILY [facility] Last Admin: 12/26/16 10:24 Dose: 40 mg Thiamine HCl (Vitamin B1 Tab) 100 mg PO DAILY [facility] Last Admin: 12/26/16 10:25 Dose: 100 mg Topiramate (Topamax) 25 mg PO BID [facility] Last Admin: 12/26/16 19:00 Dose: 25 mg Trazodone HCl (Desyrel) 50 mg PO HS PRN PRN Reason: Insomnia Last Admin: 12/23/16 00:10 Dose: 50 mg - Labs Labs: 12/26/16 07:29 12/26/16 07:29 PT 17.9 SECONDS (9.7-12.2) H 12/24/16 11:39 INR 1.5 12/24/16 11:39 APTT 37 SECONDS (21-34) H 12/24/16 11:39 - Constitutional Appears: Non-toxic, No Acute Distress, Chronically Ill - Head Exam Head Exam: NORMAL INSPECTION, NORMOCEPHALIC - Eye Exam Eye Exam: EOMI, Normal appearance, PERRL, Scleral icterus Pupil Exam: NORMAL ACCOMODATION - ENT Exam ENT Exam: Mucous Membranes Moist - Respiratory Exam Respiratory Exam: Clear to Ausculation Bilateral, NORMAL BREATHING PATTERN. absent: Accessory Muscle Use, Chest Wall Tenderness, Respiratory Distress - Cardiovascular Exam Cardiovascular Exam: REGULAR RHYTHM, +S1, +S2 - GI/Abdominal Exam GI & Abdominal Exam: Distended, Soft, Normal Bowel Sounds. absent: Firm, Guarding, Tenderness - Extremities Exam Extremities Exam: Normal Inspection. absent: Calf Tenderness, Pedal Edema - Back Exam Back Exam: NORMAL INSPECTION. absent: CVA tenderness (L), CVA tenderness (R), paraspinal tenderness - Neurological Exam Neurological Exam: Alert, Awake, CN II-XII Intact. absent: Oriented x3 - Skin Skin Exam: Dry, Intact, Normal Color, Warm Assessment and Plan - Assessment and Plan (Free Text) Assessment: (1) Alcohol intoxication Status: Acute Comment: Ativan taper (day 5) Monitor for withdrawal. patient is alcohol dependent and heavy alcohol use. d/c IV fluids Transferred out to telemetry from detox for further monitoring in light of severe thrombocytopenia Psych on board (2) Thrombocytopenia Status: Acute Comment: 12/26: Platelet count 19 12/23: severe thrombocytopenia (18,000). Platelet manual count: 20 12/24: platelets: 16,000; no observed new rashes, no reported bleeding episodes; monitor for bleeding; May need transfuse if falls below 10k or bleeding 12/25: platelets: 18,000 no observed new rashes, no reported bleeding episodes; monitor for bleeding: Ct head negative for bleed 12/26: platelets: 19,000 no observed new rashes, no reported bleeding episodes; monitor for bleeding: Ct head negative for bleed Peripheral smear ordered: reviewed in laboratory: appears hypochromic, one megakaryocyte, no observed schistocytes on 12/23/16. Patient to be transferred out to telemetry for further monitoring on 12/23. Heme-oncology (Dr. Chelo Marques) on board--->help appreciated Patient has substantial alcohol history; drinking 12, 24 ounces. Alcohol cirrhosis Discussed with ICU, patient is not ICU candidate on 12/23/16 UDS: negative pending when patient is stable from heme-onc standpoint (3) Abnormal transaminases Status: Acute Comment: Patient is hepatitis C positive and hepatitis Ab; will need to follow-up with GI in clinic Liver function tests about the same Abdominal US (12/23/16): probable hepatic cirrhosis. Ascites. Splenomeglay. Partially contracted gallbladder with cholelithiasis and thicekned wall. negative sonographic Villalat's sign. Equivocal for cholecystitis. (4) Hematemesis Status: resolved Comment: Dr. Gilliam (GI) on board-->help appreciated s/p endoscopy (12/23). Findings: reflux esophagitits. No specimens collected. Small hiatus hernia. Gastritis. No specimens collected. Normal examined duodenum ; per GI recommended for Protonix and repeat upper endoscopy in 2 months to check healing. hemoglobin stable No reported further episodes of hematemesis Protonix 40mg PO daily (5) Pancytopenia Status: Acute Comment: Likely due to alcohol use. HIV: negative. Hepatitis panel: positive Hep C+/Ab+ Heme-oncology (Dr. Chelo Marques) on consult (6) Hypomagnesemia Status: resolved Comment: Monitor (7) Prophylactic measure Status: Acute Comment: Hold anticoagulation secondary to severe thrombocytopenia GI ppx: Protonix 40mg PO daily On telemetry for further monitoring Out to chair physical therapy eval <Yvonne De La Rosa V - Last Filed: 01/01/17 03:11> Objective - Vital Signs/Intake and Output Vital Signs (last 24 hours): Temp Pulse Resp BP Pulse Ox 97.6 F 72 20 122/70 96 12/27/16 07:32 12/27/16 08:00 12/27/16 07:32 12/27/16 07:32 12/27/16 07:32 - Labs Labs: 12/27/16 07:09 12/27/16 07:09 PT 17.9 SECONDS (9.7-12.2) H 12/24/16 11:39 INR 1.5 12/24/16 11:39 APTT 37 SECONDS (21-34) H 12/24/16 11:39 Assessment and Plan (1) Alcohol intoxication Status: Acute (2) Thrombocytopenia Status: Acute (3) Abnormal transaminases Status: Acute (4) Hematemesis Status: Resolved (5) Pancytopenia Status: Acute (6) Hypomagnesemia Status: Acute (7) Prophylactic measure Status: Acute Attending/Attestation - Attestation I have personally seen and examined this patient.: Yes I have fully participated in the care of the patient.: Yes I have reviewed all pertinent clinical information, including history, physical exam and plan: Yes Notes (Text): This is late computer entry for 12/27/16. Patient seen, examined, and case discussed with day-time resident. Patient denies acute complaints. Patient is ambulatory and walking. Platelets starting to improve. No reported episodes of bleeding. Per heme-onc, patient is stable for discharge. Discussed with patient, if any further episodes of bleeding to come straight to the emergency room for possible transfusion. Per GI, patient is stable for discharge; recommended for follow-up for repeat study in 2 months, follow-up regarding hepatitis C management, and for PPi upon discharge. Patient also advised given hepatitis C it is transferable via blood and sexual intercourse, advised strong to practice safe sex including condoms and advising his sexual partners. Per discussion with psych, patient has complete detox and recommended for outpatient and inpatient rehab options and two week prescription of Gabapentin to curb alcohol use. Patient medically stable for discharge today.
[2016-12-27 00:57] VITALS: O2SAT 96
[2016-12-27 07:17] LABS: BASO % 0.7 % (0.0-2.0); EOS # 0.1 K/uL (0.0-0.7); EOS % 2.8 % (0.0-4.0); HEMATOCRIT 35.8 % (35.0-51.0); LYMPH # 1.1 K/uL (1.0-4.3); LYMPH % 43.1 % (20.0-40.0); MEAN CELL VOLUME 106.2 fL (80.0-94.0); MEAN CORPUSCULAR HEMOGLOBIN 35.7 pg (27.0-31.0); MEAN CORPUSCULAR HGB CONC 33.6 g/dL (33.0-37.0); MEAN PLATELET VOLUME 9.5 fL (7.2-11.7); MONO # 0.2 K/uL (0.0-0.8); MONO % 9.5 % (0.0-10.0); NRBC % 0.2 % (0.0-2.0); RED CELL DISTRIBUTION WIDTH 15.9 % (11.5-14.5); WHITE BLOOD COUNT 2.5 K/uL (4.8-10.8)
[2016-12-27 07:37] VITALS: BP 122/70; PULSE 72; TEMP 97.6
[2016-12-27 07:51] LABS: CHLORIDE 107 mmol/L (98-107); POTASSIUM 3.6 mmol/L (3.6-5.2); SODIUM 139 mmol/L (132-148)
[2016-12-27 07:53] LABS: AST/SGOT 109 U/L (17-59); BILIRUBIN,TOTAL 2.2 mg/dL (0.2-1.3); CARBON DIOXIDE 21 mmol/L (22-30); GFR AFRICAN-AMERICAN > 60
[2016-12-27 07:54] LABS: ALB/GLOB RATIO 0.8 (1.0-2.1); ALKALINE PHOSPHATASE 65 U/L (38-126); ALT/SGPT 130 U/L (21-72); BLOOD UREA NITROGEN 8 mg/dL (9-20); CALCIUM 7.9 mg/dl (8.6-10.4); GLUCOSE,RANDOM 90 mg/dL (75-110); MAGNESIUM 1.7 mg/dL (1.6-2.3); PHOSPHOROUS 4.6 mg/dL (2.5-4.5)
[2016-12-27] MEDS: Pantoprazole 40 mg EC Tab PO SCH (09:37)
[2016-12-27] MEDS: Multiple Vitamins Tab PO SCH (09:37)
--- NOTE | 2016-12-27 13:12 | CP.PCM.PN ---
Subjective - Date & Time of Evaluation Date of Evaluation: 12/27/16 Time of Evaluation: 13:10 - Subjective Subjective: No new complaints. No bleeding or emesis HCV antibody + Platelets now 19,000 Objective - Vital Signs/Intake and Output Vital Signs (last 24 hours): Temp Pulse Resp BP Pulse Ox 97.6 F 72 20 122/70 96 12/27/16 07:32 12/27/16 08:00 12/27/16 07:32 12/27/16 07:32 12/27/16 07:32 Intake and Output: 12/27/16 12/27/16 06:59 18:59 Intake Total 360 Balance 360 - Medications Medications: Current Medications Folic Acid (Folic Acid) 1 mg PO DAILY [facility] Last Admin: 12/27/16 09:37 Dose: 1 mg Lorazepam (Ativan) 1 mg PO Q4H PRN PRN Reason: Symptoms of alcohol withdrawl Multivitamins (Hexavitamin) 1 tab PO DAILY [facility] Last Admin: 12/27/16 09:37 Dose: 1 tab Ondansetron HCl (Zofran Tab) 4 mg PO Q8 PRN PRN Reason: Nausea/Vomiting Pantoprazole Sodium (Protonix Ec Tab) 40 mg PO DAILY [facility] Last Admin: 12/27/16 09:37 Dose: 40 mg Thiamine HCl (Vitamin B1 Tab) 100 mg PO DAILY [facility] Last Admin: 12/27/16 09:37 Dose: 100 mg Topiramate (Topamax) 25 mg PO BID [facility] Last Admin: 12/27/16 09:37 Dose: 25 mg Trazodone HCl (Desyrel) 50 mg PO HS PRN PRN Reason: Insomnia Last Admin: 12/23/16 00:10 Dose: 50 mg - Labs Labs: 12/27/16 07:09 12/27/16 07:09 PT 17.9 SECONDS (9.7-12.2) H 12/24/16 11:39 INR 1.5 12/24/16 11:39 APTT 37 SECONDS (21-34) H 12/24/16 11:39 - Constitutional Appears: No Acute Distress - Respiratory Exam Respiratory Exam: NORMAL BREATHING PATTERN - Cardiovascular Exam Cardiovascular Exam: REGULAR RHYTHM - GI/Abdominal Exam GI & Abdominal Exam: Soft, Tenderness, Normal Bowel Sounds, Organomegaly - Extremities Exam Extremities Exam: Normal Inspection Assessment and Plan (1) Alcoholic hepatitis Assessment & Plan: Abstain from alcohol. Monitor LFTs as outpatient via clinic Status: Acute (2) Abnormal transaminases Assessment & Plan: related to Etoh and possible chronic HCV Check PCR, Genotype and Fibrosure assays Out patient follow up via GI Clinic ?Candidate for DAA regimen is possible Status: Acute (3) Thrombocytopenia Assessment & Plan: Due to advanced liver disease No bleeding and platelets near baseline from admission Hematology follow up. Status: Acute (4) Ulcerative esophagitis Assessment & Plan: Continue Protonix or other PPI upon discharge for healing Advise repeat EGD in 2-3 months to reassess. (r/o underlying varices, not seen) Status: Acute (5) Hepatitis C antibody test positive Assessment & Plan: Likely related to chronic HCV which is exacerbated in disease progression by alcohol Check viral markers as noted above Outpatient follow up via clinic to assess if candidate for DAA regimen. ( compassionate care for meds) Will sign off this case now, recall as needed Thank you. Status: Acute
--- NOTE | 2016-12-27 14:00 | CP.PCM.DIS ---
<Mirlande Go - Last Filed: 12/27/16 18:35> Provider - Provider Date of Admission: 12/22/16 22:29 Attending physician: Yvonne De La Rosa DO Consults: Dr. Osorio Psych Dr. Gilliam GI Dr. Marques heme/onc Time Spent in preparation of Discharge (in minutes): 45 Hospital Course - Lab Results Lab Results: Most Recent Lab Values WBC 2.5 K/uL (4.8-10.8) L 12/27/16 07:09 RBC 3.37 Mil/uL (4.40-5.90) L 12/27/16 07:09 Hgb 12.0 g/dL (12.0-18.0) 12/27/16 07:09 Hct 35.8 % (35.0-51.0) 12/27/16 07:09 MCV 106.2 fL (80.0-94.0) H 12/27/16 07:09 MCH 35.7 pg (27.0-31.0) H 12/27/16 07:09 MCHC 33.6 g/dL (33.0-37.0) 12/27/16 07:09 RDW 15.9 % (11.5-14.5) H 12/27/16 07:09 Plt Count 22 K/uL (130-400) L* 12/27/16 07:09 Manual Plt Count 20 K/uL (130-400) L* 12/23/16 09:23 MPV 9.5 fL (7.2-11.7) 12/27/16 07:09 Neut % (Auto) 43.9 % (50.0-75.0) L 12/27/16 07:09 Lymph % (Auto) 43.1 % (20.0-40.0) H 12/27/16 07:09 [place] % (Auto) 9.5 % (0.0-10.0) 12/27/16 07:09 Eos % (Auto) 2.8 % (0.0-4.0) 12/27/16 07:09 Baso % (Auto) 0.7 % (0.0-2.0) 12/27/16 07:09 Neut # 1.1 K/uL (1.8-7.0) L 12/27/16 07:09 Lymph # 1.1 K/uL (1.0-4.3) 12/27/16 07:09 [place] # 0.2 K/uL (0.0-0.8) 12/27/16 07:09 Eos # 0.1 K/uL (0.0-0.7) 12/27/16 07:09 Baso # 0.0 K/uL (0.0-0.2) 12/27/16 07:09 Differential Comment 12/27/16 07:09 Smear Path Review 12/24/16 11:39 Retic Count 1.5 % (0.5-1.5) 12/23/16 12:12 Haptoglobin <15 mg/dL (43-212) L 12/23/16 12:12 PT 17.9 SECONDS (9.7-12.2) H 12/24/16 11:39 INR 1.5 12/24/16 11:39 APTT 37 SECONDS (21-34) H 12/24/16 11:39 Sodium 139 mmol/L (132-148) 12/27/16 07:09 Potassium 3.6 mmol/L (3.6-5.2) 12/27/16 07:09 Chloride 107 mmol/L (98-107) 12/27/16 07:09 Carbon Dioxide 21 mmol/L (22-30) L 12/27/16 07:09 Anion Gap 15 (10-20) 12/27/16 07:09 BUN 8 mg/dL (9-20) L 12/27/16 07:09 Creatinine 0.7 MG/DL (0.8-1.5) L 12/27/16 07:09 Est GFR ( Amer) > 60 12/27/16 07:09 Est GFR (Non-Af Amer) > 60 12/27/16 07:09 Random Glucose 90 mg/dL (75-110) 12/27/16 07:09 Calcium 7.9 mg/dl (8.6-10.4) L 12/27/16 07:09 Phosphorus 4.6 mg/dL (2.5-4.5) H 12/27/16 07:09 Magnesium 1.7 mg/dL (1.6-2.3) 12/27/16 07:09 Iron 206 ug/dL (49-181) H 12/23/16 12:12 TIBC 265 ug/dL (250-450) 12/23/16 12:12 % Saturation 77.73 (20-55) H 12/23/16 12:12 Ferritin 142.0 ng/mL 12/23/16 12:12 Total Bilirubin 2.2 mg/dL (0.2-1.3) H 12/27/16 07:09 AST 109 U/L (17-59) H 12/27/16 07:09 ALT 130 U/L (21-72) H 12/27/16 07:09 Alkaline Phosphatase 65 U/L (38-126) 12/27/16 07:09 Total Protein 5.0 g/dL (6.3-8.3) L 12/27/16 07:09 Albumin 2.3 g/dL (3.5-5.0) L 12/27/16 07:09 Globulin 2.7 gm/dL (2.2-3.9) 12/27/16 07:09 Albumin/Globulin Ratio 0.8 (1.0-2.1) L 12/27/16 07:09 Alpha Fetoprotein 29.0 ng/mL (0.0-7.5) H 12/23/16 12:32 Vitamin B12 954 pg/mL (239-931) H 12/24/16 11:39 RBC Folate 741 ng/mL RBC (>280) 12/24/16 11:39 Urine Color Kim (YELLOW) 12/22/16 20:59 Urine Clarity Hazy (Clear) 12/22/16 20:59 Urine pH 8.0 (5.0-8.0) 12/22/16 20:59 Ur Specific [place] 1.028 (1.003-1.030) 12/22/16 20:59 Urine Protein 2+ mg/dL (NEGATIVE) H 12/22/16 20:59 Urine Glucose (UA) Normal mg/dL (Normal) 12/22/16 20:59 Urine Ketones Negative mg/dL (NEGATIVE) 12/22/16 20:59 Urine Blood Negative (NEGATIVE) 12/22/16 20:59 Urine Nitrate Negative (NEGATIVE) 12/22/16 20:59 Urine Bilirubin Negative (NEGATIVE) 12/22/16 20:59 Urine Urobilinogen 4.0 mg/dL (0.2-1.0) 12/22/16 20:59 Ur Leukocyte Esterase Neg Lino/uL (Negative) 12/22/16 20:59 Urine WBC (Auto) 1 /hpf (0-5) 12/22/16 20:59 Urine RBC (Auto) 3 /hpf (0-3) 12/22/16 20:59 Ur Squamous Epith Cells < 1 /hpf (0-5) 12/22/16 20:59 Urine Bacteria Rare (<OCC) 12/22/16 20:59 Urine Opiates Screen Negative (NEGATIVE) 12/22/16 20:59 Urine Methadone Screen Negative (NEGATIVE) 12/22/16 20:59 Ur Barbiturates Screen Negative (NEGATIVE) 12/22/16 20:59 Ur Phencyclidine Scrn Negative (NEGATIVE) 12/22/16 20:59 Ur Amphetamines Screen Negative (NEGATIVE) 12/22/16 20:59 U Benzodiazepines Scrn Negative (NEGATIVE) 12/22/16 20:59 U Oth Cocaine Metabols Negative (NEGATIVE) 12/22/16 20:59 U Cannabinoids Screen Negative (NEGATIVE) 12/22/16 20:59 Alcohol, Quantitative < 10 mg/dl (0-10) 12/22/16 20:59 Hepatitis A IgM Ab Nonreactive (Nonreactive) 12/23/16 12:37 Hepatitis A Ab Total Reactive (Nonreactive) H 12/23/16 12:37 Hep Bs Antigen Negative (NEGATIVE) 12/23/16 12:12 Hep Bs Antibody Indeterminate (NEGATIVE) 12/23/16 12:41 Hep B Core IgM Ab Negative (NEGATIVE) 12/23/16 12:12 Hepatitis C Antibody Reactive (NEGATIVE) H 12/23/16 12:12 HIV 1&2 Antibody Screen Negative (NEGATIVE) 12/23/16 12:32 Blood Type A POSITIVE 12/24/16 11:39 Antibody Screen Negative 12/24/16 11:39 - Hospital Course Hospital Course: Upon Admission: Patient is a 56 year old male with a PMHx of alcohol use disorder presenting with low platelets. Patient admits to drinking heavily for the past several months, having twelve, 24-oz beers per day. Patient states that he woke up Thursday morning and started vomiting before he could have a beer. He describes the first episode of vomiting as containing a little bit of blood and explains that each consecutive vomiting episode contained more blood and "yellow mucus". Patient believes he vomited around 10 times yesterday, including while he was in the ED. He complains of chills, fatigue, palpitations, shortness of breath, diarrhea, and lower extremity cramping. He denies nausea, headache, dizziness, blurry vision, dysuria, swelling, numbness, and tingling. Patient was transferred to [facility] from [facility]. Heme onc Dr. Marques was consulted regarding thrombocytopenia adn Dr. Gilliam GI was consulted regarding hematemesis. Patient was started on an ativan taper and monitored for withdrawal. CT head was negative for bleed. Hepatitis profile was positive for Hepatitis C and A. Abdominal u/s showed probable hepatic cirrhosis. Ascites. Splenomeglay. Partially contracted gallbladder with cholelithiasis and thicekned wall. negative sonographic Villalta's sign. Equivocal for cholecystitis. Patient had an endoscopy 12/23 that showed reflux esophagitits. No specimens collected. Small hiatus hernia. Gastritis. No specimens collected. Normal examined duodenum; per GI recommended for Protonix and repeat upper endoscopy in 2 months to check healing. On day of discharge patient was deemed medically stable for discharge as per hospitalist Dr. De La Rosa, Heme/onc Dr. Marques and GI Dr. Gilliam. 1) Alcohol intoxication: resolved. [facility] help and [facility] for inpatient alcohol abuse help. 2) Thrombocytopenia: as per igor/onc patient stable for discharge but to return to ED immediately if symptoms of bleeding arise. 3) Abnl Transaminases: Monitor outpatient 4) Hematemesis: resolved. Patient recommended outpatient EGD in 2 months. 5) Pancytopenia: Monitor outpatient Upon Discharge: Patient stable for discharge as per Dr. De La Rosa and heme/oncologist Dr. Marques and GI Dr. Zhong. Patient to take protonix 40mg PO daily and Gabapentin 300mg PO BID for 2 weeks as prescribed. Patient recommended outpatient EGD in 2 months. Patient referred to GI clinic to follow up Hepatitis C titers and may need treatment in future. Patient to follow up with PMD within 7 days. Patient may follow up with [facility]. Patient to go to [facility] for outpatient alcohol abuse help and [facility] for inpatient alcohol abuse help. Patient advised to use protection as hepatitis C is transferrable and to abstain from alcohol abuse and advised to seek alcohol cessation help. If symptoms persist or worsen patient to visit ED immediately. Instructions discussed with patient who understands and agrees. Please note this is a discharge summary. For full hospital course please refer to medical records. Discharge Exam - Head Exam Head Exam: NORMAL INSPECTION, NORMOCEPHALIC - Eye Exam Eye Exam: PERRL, Scleral icterus - ENT Exam ENT Exam: Mucous Membranes Moist - Neck Exam Neck exam: Normal Inspection - Respiratory Exam Respiratory Exam: Clear to PA & Lateral, NORMAL BREATHING PATTERN, UNREMARKABLE. absent: Accessory Muscle Use, Rales, Rhonchi, Wheezes - Cardiovascular Exam Cardiovascular Exam: REGULAR RHYTHM, RRR, +S1, +S2 - GI/Abdominal Exam GI & Abdominal Exam: Distended, Normal Bowel Sounds, Soft - Extremities Exam Extremities exam: normal capillary refill, normal inspection, pedal pulses present - Back Exam Back exam: NORMAL INSPECTION - Neurological Exam Neurological exam: Alert, Oriented x3 - Psychiatric Exam Psychiatric exam: Normal Affect, Normal Mood - Skin Skin Exam: Dry, Intact, Normal Color, Warm Discharge Plan - Discharge Medications Prescriptions: RX: Gabapentin 300 mg PO BID #14 capsule RX: Pantoprazole [Protonix EC Tab] 40 mg PO DAILY #30 ect - Follow Up Plan Condition: STABLE Disposition: HOME/ ROUTINE Instructions: Alcohol Dependence (GEN), Alcoholic Hepatitis (DC), Esophagitis ( DC), Bone Marrow Failure in Children (DC), Bone Marrow Failure in Children (GEN) Additional Instructions: Patient stable for discharge as per Dr. De La Rosa and heme/oncologist Dr. Marques and GI Dr. Zhong. Patient to take protonix 40mg PO daily and Gabapentin 300mg PO BID for 2 weeks as prescribed. Patient recommended outpatient EGD in 2 months. Patient referred to GI clinic to follow up Hepatitis C titers and may need treatment in future. Patient to follow up with PMD within 7 days. Patient may follow up with [facility]. Patient to go to [facility] for outpatient alcohol abuse help and [facility] for inpatient alcohol abuse help. Patient advised to use protection as hepatitis C is transferrable and to abstain from alcohol abuse and advised to seek alcohol cessation help. If symptoms persist or worsen patient to visit ED immediately. Instructions discussed with patient who understands and agrees. 1. f/u PMD (clinic) 2. f/u with GI (Dr. Gilliam) as needed for: 1. Abnormal Transaminases 2. Ulcerative esophagitis (Needs to be on PPI to heal severe ulcerative reflux disease) <Yvonne De La Rosa V - Last Filed: 01/01/17 03:12> Provider - Provider Date of Admission: 12/22/16 22:29 Attending physician: Yvonne De La Rosa DO Diagnosis - Discharge Diagnosis (1) Alcohol intoxication Status: Acute (2) Thrombocytopenia Status: Acute (3) Abnormal transaminases Status: Acute (4) Hematemesis Status: Resolved (5) Pancytopenia Status: Acute (6) Hypomagnesemia Status: Acute (7) Prophylactic measure Status: Acute Hospital Course - Lab Results Lab Results: Most Recent Lab Values WBC 2.5 K/uL (4.8-10.8) L 12/27/16 07:09 RBC 3.37 Mil/uL (4.40-5.90) L 12/27/16 07:09 Hgb 12.0 g/dL (12.0-18.0) 12/27/16 07:09 Hct 35.8 % (35.0-51.0) 12/27/16 07:09 MCV 106.2 fL (80.0-94.0) H 12/27/16 07:09 MCH 35.7 pg (27.0-31.0) H 12/27/16 07:09 MCHC 33.6 g/dL (33.0-37.0) 12/27/16 07:09 RDW 15.9 % (11.5-14.5) H 12/27/16 07:09 Plt Count 22 K/uL (130-400) L* 12/27/16 07:09 Manual Plt Count 20 K/uL (130-400) L* 12/23/16 09:23 MPV 9.5 fL (7.2-11.7) 12/27/16 07:09 Neut % (Auto) 43.9 % (50.0-75.0) L 12/27/16 07:09 Lymph % (Auto) 43.1 % (20.0-40.0) H 12/27/16 07:09 [place] % (Auto) 9.5 % (0.0-10.0) 12/27/16 07:09 Eos % (Auto) 2.8 % (0.0-4.0) 12/27/16 07:09 Baso % (Auto) 0.7 % (0.0-2.0) 12/27/16 07:09 Neut # 1.1 K/uL (1.8-7.0) L 12/27/16 07:09 Lymph # 1.1 K/uL (1.0-4.3) 12/27/16 07:09 [place] # 0.2 K/uL (0.0-0.8) 12/27/16 07:09 Eos # 0.1 K/uL (0.0-0.7) 12/27/16 07:09 Baso # 0.0 K/uL (0.0-0.2) 12/27/16 07:09 Differential Comment 12/27/16 07:09 Smear Path Review 12/24/16 11:39 Retic Count 1.5 % (0.5-1.5) 12/23/16 12:12 Haptoglobin <15 mg/dL (43-212) L 12/23/16 12:12 PT 17.9 SECONDS (9.7-12.2) H 12/24/16 11:39 INR 1.5 12/24/16 11:39 APTT 37 SECONDS (21-34) H 12/24/16 11:39 Sodium 139 mmol/L (132-148) 12/27/16 07:09 Potassium 3.6 mmol/L (3.6-5.2) 12/27/16 07:09 Chloride 107 mmol/L (98-107) 12/27/16 07:09 Carbon Dioxide 21 mmol/L (22-30) L 12/27/16 07:09 Anion Gap 15 (10-20) 12/27/16 07:09 BUN 8 mg/dL (9-20) L 12/27/16 07:09 Creatinine 0.7 MG/DL (0.8-1.5) L 12/27/16 07:09 Est GFR ( Amer) > 60 12/27/16 07:09 Est GFR (Non-Af Amer) > 60 12/27/16 07:09 Random Glucose 90 mg/dL (75-110) 12/27/16 07:09 Calcium 7.9 mg/dl (8.6-10.4) L 12/27/16 07:09 Phosphorus 4.6 mg/dL (2.5-4.5) H 12/27/16 07:09 Magnesium 1.7 mg/dL (1.6-2.3) 12/27/16 07:09 Iron 206 ug/dL (49-181) H 12/23/16 12:12 TIBC 265 ug/dL (250-450) 12/23/16 12:12 % Saturation 77.73 (20-55) H 12/23/16 12:12 Ferritin 142.0 ng/mL 12/23/16 12:12 Total Bilirubin 2.2 mg/dL (0.2-1.3) H 12/27/16 07:09 AST 109 U/L (17-59) H 12/27/16 07:09 ALT 130 U/L (21-72) H 12/27/16 07:09 Alkaline Phosphatase 65 U/L (38-126) 12/27/16 07:09 Total Protein 5.0 g/dL (6.3-8.3) L 12/27/16 07:09 Albumin 2.3 g/dL (3.5-5.0) L 12/27/16 07:09 Globulin 2.7 gm/dL (2.2-3.9) 12/27/16 07:09 Albumin/Globulin Ratio 0.8 (1.0-2.1) L 12/27/16 07:09 Alpha Fetoprotein 29.0 ng/mL (0.0-7.5) H 12/23/16 12:32 Vitamin B12 954 pg/mL (239-931) H 12/24/16 11:39 RBC Folate 741 ng/mL RBC (>280) 12/24/16 11:39 Urine Color Kim (YELLOW) 12/22/16 20:59 Urine Clarity Hazy (Clear) 12/22/16 20:59 Urine pH 8.0 (5.0-8.0) 12/22/16 20:59 Ur Specific [place] 1.028 (1.003-1.030) 12/22/16 20:59 Urine Protein 2+ mg/dL (NEGATIVE) H 12/22/16 20:59 Urine Glucose (UA) Normal mg/dL (Normal) 12/22/16 20:59 Urine Ketones Negative mg/dL (NEGATIVE) 12/22/16 20:59 Urine Blood Negative (NEGATIVE) 12/22/16 20:59 Urine Nitrate Negative (NEGATIVE) 12/22/16 20:59 Urine Bilirubin Negative (NEGATIVE) 12/22/16 20:59 Urine Urobilinogen 4.0 mg/dL (0.2-1.0) 12/22/16 20:59 Ur Leukocyte Esterase Neg Lino/uL (Negative) 12/22/16 20:59 Urine WBC (Auto) 1 /hpf (0-5) 12/22/16 20:59 Urine RBC (Auto) 3 /hpf (0-3) 12/22/16 20:59 Ur Squamous Epith Cells < 1 /hpf (0-5) 12/22/16 20:59 Urine Bacteria Rare (<OCC) 12/22/16 20:59 Urine Opiates Screen Negative (NEGATIVE) 12/22/16 20:59 Urine Methadone Screen Negative (NEGATIVE) 12/22/16 20:59 Ur Barbiturates Screen Negative (NEGATIVE) 12/22/16 20:59 Ur Phencyclidine Scrn Negative (NEGATIVE) 12/22/16 20:59 Ur Amphetamines Screen Negative (NEGATIVE) 12/22/16 20:59 U Benzodiazepines Scrn Negative (NEGATIVE) 12/22/16 20:59 U Oth Cocaine Metabols Negative (NEGATIVE) 12/22/16 20:59 U Cannabinoids Screen Negative (NEGATIVE) 12/22/16 20:59 Alcohol, Quantitative < 10 mg/dl (0-10) 12/22/16 20:59 Hepatitis A IgM Ab Nonreactive (Nonreactive) 12/23/16 12:37 Hepatitis A Ab Total Reactive (Nonreactive) H 12/23/16 12:37 Hep Bs Antigen Negative (NEGATIVE) 12/23/16 12:12 Hep Bs Antibody Indeterminate (NEGATIVE) 12/23/16 12:41 Hep B Core IgM Ab Negative (NEGATIVE) 12/23/16 12:12 Hepatitis C Antibody Reactive (NEGATIVE) H 12/23/16 12:12 HIV 1&2 Antibody Screen Negative (NEGATIVE) 12/23/16 12:32 Blood Type A POSITIVE 12/24/16 11:39 Antibody Screen Negative 12/24/16 11:39 Attending/Attestation - Attestation I have personally seen and examined this patient.: Yes I have fully participated in the care of the patient.: Yes I have reviewed all pertinent clinical information, including history, physical exam and plan: Yes Notes (Text): This is late computer entry for 12/27/16. Patient seen, examined, and case discussed with day-time resident. Patient denies acute complaints. Patient is ambulatory and walking. Platelets starting to improve. No reported episodes of bleeding. Per heme-onc, patient is stable for discharge. Discussed with patient, if any further episodes of bleeding to come straight to the emergency room for possible transfusion. Per GI, patient is stable for discharge; recommended for follow-up for repeat study in 2 months, follow-up regarding hepatitis C management, and for PPi upon discharge. Patient also advised given hepatitis C it is transferable via blood and sexual intercourse, advised strong to practice safe sex including condoms and advising his sexual partners. Per discussion with psych, patient has complete detox and recommended for outpatient and inpatient rehab options and two week prescription of Gabapentin to curb alcohol use. Discussed discharge order and instructions with day-time resident which included the following: Patient to take protonix 40mg PO daily (30 pills) and Gabapentin 300mg PO BID for 2 weeks as prescribed. Patient recommended outpatient EGD in 2 months. Patient referred to GI clinic to follow up Hepatitis C titers and may need treatment in future. Patient to follow up with PMD within 7 days. Patient may follow up with [facility]. Patient to go to [facility] access [facility] for outpatient alcohol abuse help and [facility] for inpatient alcohol abuse help. Patient advised to use protection as hepatitis C is transferrable and to abstain from alcohol abuse and advised to seek alcohol cessation help. If symptoms persist or worsen patient to visit ED immediately. Instructions discussed with patient who understands and agrees. Please note this is a discharge summary. For full hospital course please refer to medical records
== END 2016-12-27 15:17 | disposition home or self-care (01) | DRG 750 ==
LOC: C.ER 17:00 → C.7D 22:29 → C.5T 12-23 12:28
PROVIDERS: ADMIT Hospitalist; ATTEND Hospitalist
PROC: HZ2ZZZZ Detoxification Services for Substance Abuse Treatment (ICD-10-PCS; principal; 2016-12-22)
PROC: HZ52ZZZ Individual Psychotherapy for Substance Abuse Treatment, Cognitive-Behavioral (ICD-10-PCS; 2016-12-22)
PROC: HZ59ZZZ Individual Psychotherapy for Substance Abuse Treatment, Supportive (ICD-10-PCS; 2016-12-22)
PROC: HZ56ZZZ Individual Psychotherapy for Substance Abuse Treatment, Psychoeducation (ICD-10-PCS; 2016-12-22)
PROC: 0DJ08ZZ Inspection of Upper Intestinal Tract, Via Natural or Artificial Opening Endoscopic (ICD-10-PCS; 2016-12-24)
DX: F10.239 Alcohol dependence with withdrawal, unspecified (principal); D61.818 Other pancytopenia; D68.9 Coagulation defect, unspecified; K92.0 Hematemesis; K22.10 Ulcer of esophagus without bleeding; K76.6 Portal hypertension; D69.6 Thrombocytopenia, unspecified; B15.9 Hepatitis A without hepatic coma; E86.0 Dehydration; B19.20 Unspecified viral hepatitis C without hepatic coma; E83.42 Hypomagnesemia; K70.11 Alcoholic hepatitis with ascites; D73.1 Hypersplenism; F17.200 Nicotine dependence, unspecified, uncomplicated; K29.70 Gastritis, unspecified, without bleeding; K21.9 Gastro-esophageal reflux disease without esophagitis; K44.9 Diaphragmatic hernia without obstruction or gangrene